=== PATIENT | male | born 1940 | race Caucasian/White ===

== ENCOUNTER 2016-09-15 14:26 | Emergency (ER) | payer MEDICARE, BC ==
[2016-09-15] MEDS ORDERED: ALBUTEROL SULFATE/IPRATROPIUM 3 ML NEBU IH ONE (14:42)
--- NOTE | 2016-09-15 14:53 | ERNOTE ---
Date of Service: 09/15/16 Time Seen by Provider: 09/15/16 14:37 Stated Complaint: SOB/HEM Presenting Symptoms:: cough Source: patient Exam Limitations: no limitations Immunizations: IMMUNIZATION HX Immunizations Up to Date Yes History of Influenza Vaccine Yes Hx Pneumococcal Vaccination Yes Allergies/Adverse Reactions: Allergies terbinafine HCl [From Lamisil] Allergy (Intermediate, Verified 08/25/14 09:10) rash, feet swell, itch Home Medications: HOME MEDICATIONS Calcium Carbonate/Vitamin D3 [Calcium 600 + Vit D 400 Tablet] 1 tab PO BID 05/10 [Last Taken 05/10/12 08:00] Diltiazem HCl [Diltiazem 24Hr ER] 240 mg PO DAILY 05/10/12 [Last Taken 08/25/14] Duloxetine HCl [Cymbalta] 60 mg PO DAILY 05/10/12 [Last Taken 05/10/12 08:00] Fexofenadine HCl [Kiarra] 180 mg PO DAILY 05/10/12 [Last Taken 05/10/12 08:00] Metformin HCl 1,000 mg PO BID 05/10/12 [Last Taken Unknown] Omeprazole [Prilosec] 40 mg PO DAILY 05/10/12 [Last Taken Unknown] Spironolactone [Aldactone] 25 mg PO DAILY 05/10/12 [Last Taken Unknown] Tamsulosin HCl 0.4 mg PO DAILY 05/10/12 [Last Taken Unknown] Atorvastatin Calcium [Lipitor] 40 mg PO DAILY 08/31/13 [Last Taken Unknown] B2/Vits A,C,E/Lut/Zeaxanth/Min [Icaps Tablet] 2 tab PO BID 08/31/13 [Last Taken Unknown] Donepezil HCl [Aricept] 5 mg PO HS 08/31/13 [Last Taken Unknown] Ferrous Sulfate 325 mg PO BID 09/07/13 [Last Taken Unknown] Blood-Glucose Meter [Prodigy] 1 each MC TID 07/20/14 [Last Taken Unknown] Pregabalin [Lyrica] 100 mg PO TID 07/20/14 [Last Taken Unknown] DULoxetine HCL [Cymbalta] 30 mg PO DAILY 08/11/14 [Last Taken Unknown] Acetaminophen [Tylenol] 1,000 mg PO Q8H PRN 09/15/16 [Last Taken Unknown] Albuterol Sulfate [Albuterol Sulfate 2.5 MG/0.5ML] 1 vial IH DAILY 09/15/16 [ Last Taken Unknown] Albuterol Sulfate [Proair Hfa] 2 puff IH Q4H PRN 09/15/16 [Last Taken Unknown] Albuterol Sulfate/Ipratropium [Duoneb 2.5-0.5MG/3ML Soln] 3 ml IH QID #150 vial 09/15/16 [Last Taken Unknown] Aspirin [Aspirin Enteric Coated] 325 mg PO DAILY 09/15/16 [Last Taken Unknown] Budesonide/Formoterol Fumarate [Symbicort 160-4.5 Mcg Inhaler] 2 puff IH BID 07/03 [Last Taken Unknown] Doxycycline Monohydrate 100 mg PO BID #20 tablet 09/15/16 [Last Taken Unknown] Fluticasone Propionate [Flonase] 2 spray NS DAILY PRN 09/15/16 [Last Taken Unknown] Furosemide [Lasix] 20 mg PO DAILY 09/15/16 [Last Taken Unknown] Insulin Glargine,Hum.rec.anlog [Lantus] 35 units SC HS 09/15/16 [Last Taken Unknown] Losartan Potassium [Cozaar] 50 mg PO DAILY 09/15/16 [Last Taken Unknown] Multivitamins [Multivitamin Nish] 1 cap PO DAILY 09/15/16 [Last Taken Unknown] Polyethylene Glycol 3350 [Miralax] 17 gm PO DAILY 09/15/16 [Last Taken Unknown] Urea [Karina Lo 39] 1 applic TP BID 09/15/16 [Last Taken Unknown] traMADol HCL [Ultram] 50 mg PO QID PRN 09/15/16 [Last Taken Unknown] - History of Present Ilness Narrative: Pt. comes in with c/o cough and SOB for four days and also with hemorrhoids that feel yoder than usual. Pt. denies any recent illness, fever, rhinorrhea, NVD, alleviating factors. Pt. does state that he has some chest tightness but denies any palpitations or edema. Pt. has a hx of COPD that he is on breathing treatments as needed for and used a couple of those without relief. It is over a year old so pt. feels that they may not have worked because it is . Review of Systems - Review of Systems Constitutional: Present: no symptoms reported. Absent: recent illness, fever, chills, weakness, fatigue, malaise EYE: Present: no symptoms reported ENT: Present: no symptoms reported. Absent: nose pain, nose congestion, nasal drainage Respiratory: Present: shortness of breath, cough, wheezing Cardiology: Present: chest pain. Absent: palpitations, syncope, edema, claudication Gastrointestinal/Abdominal: Present: no symptoms reported. Absent: nausea, vomiting, diarrhea Genitourinary: Present: no symptoms reported Musculoskeletal: Present: no symptoms reported. Absent: back pain, joint pain Skin: Present: no symptoms reported Neurological: Present: no symptoms reported. Absent: headache, dizziness/light- headedness, numbness All Other Systems: All systems neg except as marked - Patient's Past Medical History Patient History - Medical: No pertinent hx - Family History Mother Family History - Medical: , Diabetes Type 2 Family History - Cardiac/Respiratory: CVA/Stroke, Hypertension Family History - Cancer: No pertinent family hx Father Family History - Medical: , No pertinent hx Family History - Cardiac/Respiratory: Myocardial Infarction Family History - Cancer: No pertinent family hx Brother Family History - Medical: , Alcohol Abuse, Diabetes Type 2 Family History - Cardiac/Respiratory: Myocardial Infarction Family History - Cancer: No pertinent family hx Sister Family History - Medical: , No pertinent hx Family History - Cardiac/Respiratory: No pertinent hx Family History - Cancer: Colon - Social History Smoking Status: Former smoker Have you smoked in the past 12 months: No Do you dip or chew tobacco: No Patient requests Smoking Cessation Consult: No Initiate information on Smoking Cessation: No - Immunizations Immunizations Up to Date: Yes Hx Pneumococcal Vaccination: Yes History of Influenza Vaccine: Yes Physical Exam - Physical Exam General Appearance: Present: wd/wn, alert, no apparent distress Eye Exam: Normal inspection: bilateral, PERRL: bilateral, EOMI: bilateral Ears, Nose, Throat: Present: normal ENT inspection, normal pharynx Neck: Present: normal inspection, nontender. Absent: lymphadenopathy (R), lymphadenopathy (L) Respiratory: Present: accessory muscle use - abdominal an d supraclavicular, decreased breath sounds - severely except upper Bilat, wheezing Cardiovascular/Chest: Present: no murmur, normal peripheral pulses, tachycardia Gastrointestinal/Abdominal: Present: normal bowel sounds, nontender, nondistended, soft, no organomegaly Rectal Exam: Present: deferred - pt.too SOB at this time Back Exam: Present: normal inspection, normal range of motion, no CVA tenderness , no vertebral tenderness Extremity Exam: Present: normal inspection, non-tender, normal range of motion, pedal edema - +1, extremity edema - +1 Neurological Exam: Present: alert, oriented, normal mood/affect, no motor/ sensory deficits, food checkers and cashiers supervisor II-XII nml as tested, normal cerebellar test Skin Exam: Present: warm/dry, pallor. Absent: skin rash ED Progress - Date and Time Seen: Date and Time: 09/15/16 19:19 Troponin not increasing but is decreasing so will discharge on antibiotics due to history and bronchitis. - Results and Orders Patient's Lab Results:: I have reviewed the patient's lab results. Results and Orders: Elevated D Dimer with slight troponin leak - Vital Signs Patient's Vital Signs:: I have reviewed the patient's vital signs. Vital Signs: Vital Signs 09/15/16 14:28 Temperature 36.8 C Pulse Rate 91 Respiratory 20 Rate Blood Pressure 169/76 O2 Sat by Pulse 95 Oximetry - EKG EKG: NSR EKG read: Reviewed by me EKG Comments: no acute changes interpreted by Dr Eileen Abreu - X-Ray X-Ray #1 X-Ray: chest Interpretation: Interp. by me X-ray Comments: bronchial cuffing and hypoventilatory changes - CT/Ultrasound CT/Ultrasound Narrative: CT chest: Bibasilar pulmonary nodules mostly solid could be pneumonia. Bronchiectasis, and dependent atelactasis - Progress/Reassessment Chief Complaint: Upper Respiratory Symptoms Progress:: Improved Departure - Departure Clinical Impression: Bronchitis Disposition: Home self-care Condition: Good Instructions: Acute Bronchitis Additional Instructions: Please follow up with primary provider in 2-3 days. Referrals: Familia Figueroa MD [Primary Care Provider] - Prescriptions: Albuterol Sulfate/Ipratropium [Duoneb 2.5-0.5MG/3ML Soln] 3 ml IH QID #150 vial Doxycycline Monohydrate 100 mg PO BID #20 tablet
[2016-09-15] MEDS ORDERED: ALBUTEROL SULFATE 2.5 MG/0.5 ML VIAL.NEB IH ONE (15:00)
[2016-09-15 15:01] LABS: Hematocrit 38.8 % (42.0-52.0); Hemoglobin 12.3 gm/dL (13.5-18.0); Mean Cell Volume 92.6 fl (78-100); Mean Corpuscular Hemoglobin 29.4 pg (27-31); Mean Corpuscular Hgb Conc 31.7 g/dl (32-36); Mean Platelet Volume 9.5 fl (6.0-9.5); Neutrophil # 3.9 K/mm3 (1.3-6.0); Neutrophil % 52.7 % (42-75.0); Platelet Count 251 K/mm3 (150-450); Red Blood Count 4.19 M/mm3 (4.7-6.0); Red Cell Distribution Width 14.9 % (11.5-14.0); White Blood Count 7.4 K/mm3 (4.0-10.5)
[2016-09-15 15:06] VITALS: BP 149/72
[2016-09-15 15:18] LABS: Albumin * 3.7 gm/dl (3.4-5.0); Anion Gap 13.1 mmol/L (6.8-13.8); BUN/Creatinine Ratio 14.5 (9.0-21.6); Bilirubin, Total 0.4 mg/dL (0.0-1.1); Ca. Corrected For Albumin 8.8 mg/dL (8.4-10.2); Calcium * 8.9 mg/dL (7.9-10.9); Carbon Dioxide 31.2 mmol/L (24-32.6); Potassium 4.3 mmol/L (3.4-4.6); Total Protein 7.6 gm/dL (6.2-8.2)
[2016-09-15 15:19] LABS: Troponin I 0.028 ng/ml (0.00-0.10)
[2016-09-15 15:26] LABS: Urine Appearance Clear; Urine Bilirubin Negative (NEGATIVE); Urine Blood Negative /ul (NEGATIVE); Urine Color Yellow; Urine Ketone Negative (NEGATIVE)
[2016-09-15 15:27] LABS: Urine Bacteria None Seen; Urine Nitrite Negative (NEGATIVE); Urine Protein Negative (NEGATIVE); Urine RBC None Seen /hpf (0-5); Urine Urobilinogen Normal (NORMAL); Urine WBC None Seen /hpf (0-5); Urine pH 6.5 pH (5.0-7.0)
--- OUTSIDE RECORDS SUMMARY | 2016-09-15 15:40 | XMS REPORT | Continuity of Care Document ---
:1940 Author Organization [facility] ([facility]) Address [place] [address] Phone [phone] Care Team Providers Name Role Phone MonaFamilia wynn Primary Care Provider [phone] Source Comments This disclosure is being made pursuant to the Care Everywhere program, applicable federal and state laws, and may not contain all informaitonavailable regarding this patient.[facility] ([facility]) Active Allergies and Adverse Reactions Allergen Noted Date Severity Reactions Comments Terbinafine Angioedema lamisil Current Medications Prescription Sig. Disp. Refills Start Date End Date Status VIT A/VIT C/VIT take 2 Tabs by mouth 2 Active E/ZINC/COPPER times daily. (PRESERVISION AREDS PO) MULTIVITAMINS take 1 Tab by mouth Active W-MINERALS/LUT daily. (CENTRUM SILVER PO) DULoxetine (CYMBALTA) take 60 mg by mouth Active 60 mg capsule daily. metformin (GLUCOPHAGE) take 1,000 mg by mouth Active 1,000 mg tablet 2 times daily with meals. FEXOFENADINE HCL Take 180 mg by mouth Active (FEXOFENADINE PO) daily. CALCIUM PO Take 600 mg by mouth 2 Active times daily. INSULIN inject 30 Units Active GLARGINE,HUM.REC.ANLOG subcutaneously at (LANTUS SC) bedtime. DULoxetine (CYMBALTA) Take 30 mg by mouth Active 30 mg capsule daily. Take with 60 mg tab for 90 mg daily dose furosemide 40 mg Take 20 mg by mouth Active tablet daily. tamsulosin (FLOMAX) Take 0.4 mg by mouth Active 0.4 mg ER capsule daily. diltiazem 240 mg ER Take 240 mg by mouth Active capsule daily. donepezil 5 mg tablet Take 5 mg by mouth at Active bedtime. ferrous sulfate 325 mg Take 325 mg by mouth Active (65 mg iron) tablet daily. atorvastatin 40 mg Take 40 mg by mouth Active tablet every evening. omeprazole 20 mg Take 20 mg by mouth Active enteric coated capsule daily. spironolactone 25 mg Take 25 mg by mouth Active tablet daily. aspirin 325 mg EC Take 325 mg by mouth Active tablet daily. losartan 50 mg tablet Take 50 mg by mouth Active daily. pregabalin (LYRICA) Take 100 mg by mouth 3 Active 100 mg capsule times daily. primidone 50 mg tablet Take 25 mg by mouth Active daily. fluticasone-salmeterol inhale 1 puff by 10/01/2012 Active (ADVAIR 500-50) inhalation route 2 inhaler times every day in the morning and evening approximately 12 hours apart albuterol-ipratropium inhale 3 milliliter by 10/01/2012 Active 2.5-0.5 mg/3 mL nebulization route 4 inhalation solution times every day naproxen sodium 220 mg take 1 tablet (220MG) 10/01/2012 Active tablet by oral route every 12 hours as needed Active Problems Problem Noted Date Essential hypertension 09/13/2015 Orthostatic hypotension 09/13/2015 Pure hypercholesterolemia 09/13/2015 Diastolic dysfunction 09/13/2015 Overview: Echo (Normal EF, Normal Valves, Mild LVH, Impaired Relaxation Diastolic Dysfunction) - 07/25/2010 Nausea with vomiting 06/30/2014 Chest pain, unspecified 06/30/2014 Overview: Martin MPI (mild fixed perfusion defect involving the apial regions, no stress- induced reversible ischemia) - 08/15/2009 Pseudophakia 11/11/2008 Posterior capsular opacification, not obscuring vision 11/11/2008 AMD (age related macular degeneration) 11/11/2008 Overview: Geographic atrophy Type II or unspecified type diabetes mellitus without mention of 11/11/2008 complication, not stated as uncontrolled Social History Tobacco Use Types Packs/Day Years Used Date Former Smoker Cigarettes Quit: 07/13/1989 Comments:years ago Alcohol Use Drinks/Week oz/Week Comments No Last Filed Vital Signs Vital Sign Reading Time Taken Blood Pressure 142/82 09/14/2015 12:19 PM CDT Pulse 76 09/14/2015 12:19 PM CDT Temperature 36.6 C (97.9 F) 06/30/2014 3:02 PM TIE BUYER Respiratory Rate 16 06/30/2014 3:02 PM TIE BUYER Height 1.829 m (6' 0.01") 09/14/2015 12:19 PM CDT Weight 131.997 kg (291 lb) 09/14/2015 12:19 PM CDT Body Mass Index 39.46 09/14/2015 12:19 PM CDT Oxygen Saturation 95% 06/30/2014 3:02 PM TIE BUYER Plan of Care Date Type Specialty Providers Description 09/26/2016 Appointment Heart and Vascular Chilo Cardenas, Chief Comp: Patient MD Reported Reason For [address] [place] [address] [phone] (Fax) Health Maintenance Due Date Last Done Comments Hepatitis B Vaccine (1 of 3 - Primary 1940 Series) Tdap Vaccine 1952 DIABETIC: Cholesterol 12/20/1959 Diabetic: Hdl 12/20/1959 DIABETIC: Hemoglobin A1C 12/20/1959 Diabetic: Ldl 12/20/1959 DIABETIC: Microalbumin 12/20/1959 DIABETIC: Triglycerides 12/20/1959 Td Vaccine 12/20/1959 Colonoscopy 1991 Prostate Cancer Screening 12/20/1991 Zoster Vaccine 2001 Pneumococcal Vaccine (1 of 2 - PCV13) 2006 DIABETIC: Foot Exam 11/28/2010 DIABETIC: Retinal Eye Exam 09/17/2015 09/16/2014, 12/11/2012, 12/11/2012 Influenza Vaccine: Seasonal (#1) 01/16/2016 Results from Last 3 Months Not on file
[2016-09-15 15:48] LABS: Prothrombin Time (Patient) 10.5 Seconds (9.4-11.4)
[2016-09-15 15:49] LABS: INR 1.01 INR (0.90-1.10); Partial Thrombolplastin Time 25.3 Seconds (24-32)
== END 2016-09-15 19:22 | disposition home or self-care (01) ==
LOC: ER 14:26
DX: J20.9 Acute bronchitis, unspecified (principal)

== ENCOUNTER 2016-09-25 07:39 | Day surgery (SDC) | payer MEDICARE, BC ==
--- NOTE | 2016-09-20 09:41 | HP ---
Chief Complaint - Chief Complaint Date of Service: 09/20/16 Chief Complaint: need my colon checked again......also having problems with my hemorrhoids History of Present Illness: 75 year old male who has not had a colonoscopy for over 10 years (and that last one revealed no polyps) who also complains of some burning with BMs and pain with wiping. He notices no blood but his eyesight is very bad secondary to macular degeneration. He also recently had a CT to rule out a PE and was noted to have a thickening of the distal esophagus that would need to be evaluated. Hx of GERD and is on Prilosec. BMs have been soft to loose at times, Never constipated. He feels the hemorrhoids only with sitting on the stool or straining at stool, not in shower or bathing. He does push them up at times while sitting on the stool. States he has had a hemorrhoid removed in the past. No family history of colon cancer or esophageal cancer. - Patient's Past Medical History Patient History - Medical: Diabetes Type 2 Insulin Dependent, GERD, Obesity, Osteoarthritis Patient History - Cardiac/Respiratory: Asthma, Coronary Heart Disease, COPD, Hypertension, Hyperlipidemia, Sleep Apnea Patient History - Cancer: No Hx of Cancer Patient History - Surgical Procedures: Cataracts, Cholecystectomy, Colonoscopy, EGD, Total Knee Replacement, Vasectomy, Orthopedic, Urology - Family History Family History:: no untoward family reactions to anesthesia, no familial bleeding tendencies, no family history of clotting disorders - Family History Mother Family History - Medical: , Diabetes Type 2 Family History - Cardiac/Respiratory: CVA/Stroke, Hypertension Family History - Cancer: No pertinent family hx Father Family History - Medical: , No pertinent hx Family History - Cardiac/Respiratory: Myocardial Infarction Family History - Cancer: No pertinent family hx Brother Family History - Medical: , Alcohol Abuse, Diabetes Type 2 Family History - Cardiac/Respiratory: Myocardial Infarction Family History - Cancer: No pertinent family hx Sister Family History - Medical: , No pertinent hx Family History - Cardiac/Respiratory: No pertinent hx Family History - Cancer: Colon - Social History Living Situations: spouse Abuse History: No History of abuse Psych History: Hx of Anxiety, Hx of Depression, Current tx/ever been on anti- depressants or anti-anxiety meds Does anyone smoke in the home?: No Smoking Status: Former smoker - 30 years ago Alcohol Use: none Drug Use: none - Immunizations Immunizations Up to Date: Yes Hx Pneumococcal Vaccination: Yes History of Influenza Vaccine: Yes Review Of Systems (GEN) - Review of Systems Generalized/Overall Review: Present: Weight gain. Absent: Weakness, Chills, Fever, Malaise, Weight loss Respiratory: Present: Shortness of Breath. Absent: Cough, Orthopnea, Stridor, Wheezing Cardiac: Absent: Chest Pain, Palpitations, Syncope Abdominal: Absent: Nausea, Vomiting, Abdominal Pain, Constipation, Bright blood from rectum Genitourinary: Present: Frequency, Nocturia, Other Musculoskeletal: Present: Joint Pain, Joint Swelling Neurological: Absent: Headache, Anxiety, Depressed, Numbness Skin: Absent: Dryness, Lesions, Lumps Immunizations: IMMUNIZATION HX Immunizations Up to Date Yes History of Influenza Vaccine Yes Hx Pneumococcal Vaccination Yes Allergies/Adverse Reactions: Allergies Allergy/AdvReac Type Severity Reaction Status Date / Time terbinafine HCl Allergy Intermediate rash, feet Verified 08/25/14 09:10 [From Lamisil] swell, itch Home Medications: HOME MEDICATIONS Calcium Carbonate/Vitamin D3 [Calcium 600 + Vit D 400 Tablet] 1 tab PO BID 05/10 [Last Taken 05/10/12 08:00] Diltiazem HCl [Diltiazem 24Hr ER] 240 mg PO DAILY 05/10/12 [Last Taken 08/25/14] Duloxetine HCl [Cymbalta] 60 mg PO DAILY 05/10/12 [Last Taken 05/10/12 08:00] Fexofenadine HCl [Kiarra] 180 mg PO DAILY 05/10/12 [Last Taken 05/10/12 08:00] Metformin HCl 1,000 mg PO BID 05/10/12 [Last Taken Unknown] Omeprazole [Prilosec] 40 mg PO DAILY 05/10/12 [Last Taken Unknown] Spironolactone [Aldactone] 25 mg PO DAILY 05/10/12 [Last Taken Unknown] Tamsulosin HCl 0.4 mg PO DAILY 05/10/12 [Last Taken Unknown] Atorvastatin Calcium [Lipitor] 40 mg PO DAILY 08/31/13 [Last Taken Unknown] B2/Vits A,C,E/Lut/Zeaxanth/Min [Icaps Tablet] 2 tab PO BID 08/31/13 [Last Taken Unknown] Donepezil HCl [Aricept] 5 mg PO HS 08/31/13 [Last Taken Unknown] Ferrous Sulfate 325 mg PO BID 09/07/13 [Last Taken Unknown] Blood-Glucose Meter [Prodigy] 1 each MC TID 07/20/14 [Last Taken Unknown] Pregabalin [Lyrica] 100 mg PO TID 07/20/14 [Last Taken Unknown] DULoxetine HCL [Cymbalta] 30 mg PO DAILY 08/11/14 [Last Taken Unknown] Acetaminophen [Tylenol] 1,000 mg PO Q8H PRN 09/15/16 [Last Taken Unknown] Albuterol Sulfate [Albuterol Sulfate 2.5 MG/0.5ML] 1 vial IH DAILY 09/15/16 [ Last Taken Unknown] Albuterol Sulfate [Proair Hfa] 2 puff IH Q4H PRN 09/15/16 [Last Taken Unknown] Albuterol Sulfate/Ipratropium [Duoneb 2.5-0.5MG/3ML Soln] 3 ml IH QID #150 vial 09/15/16 [Last Taken Unknown] Aspirin [Aspirin Enteric Coated] 325 mg PO DAILY 09/15/16 [Last Taken Unknown] Budesonide/Formoterol Fumarate [Symbicort 160-4.5 Mcg Inhaler] 2 puff IH BID 07/03 [Last Taken Unknown] Doxycycline Monohydrate 100 mg PO BID #20 tablet 09/15/16 [Last Taken Unknown] Fluticasone Propionate [Flonase] 2 spray NS DAILY PRN 09/15/16 [Last Taken Unknown] Furosemide [Lasix] 20 mg PO DAILY 09/15/16 [Last Taken Unknown] Insulin Glargine,Hum.rec.anlog [Lantus] 35 units SC HS 09/15/16 [Last Taken Unknown] Losartan Potassium [Cozaar] 50 mg PO DAILY 09/15/16 [Last Taken Unknown] Multivitamins [Multivitamin Nish] 1 cap PO DAILY 09/15/16 [Last Taken Unknown] Polyethylene Glycol 3350 [Miralax] 17 gm PO DAILY 09/15/16 [Last Taken Unknown] Urea [Karina Lo 39] 1 applic TP BID 09/15/16 [Last Taken Unknown] predniSONE [Prednisone] 3 tab PO DAILY #9 tab 09/15/16 [Last Taken Unknown] traMADol HCL [Ultram] 50 mg PO QID PRN 09/15/16 [Last Taken Unknown] Exam - Exam Vital Signs: Vital Signs - Last Taken Temp 36.8 C 09/15/16 19:22 Pulse Resp BP 149/72 09/15/16 19:22 Pulse Ox Ht 5'11 Wt 300# Constitutional: Present: Alert, Oriented x3, Cooperative, Morbidly obese ENT Exam: Present: normal ENT inspection, hearing grossly normal Neck: Present: non-tender, full range of motion Breasts: Present: Exam deferred Respiratory: Present: lungs clear, normal breath sounds, no respiratory distress , no accessory muscle use Cardiovascular/Chest: Present: regular rate, rhythm, no murmur Abdomen: Present: Normal bowel sounds, soft, nontender, obese /Rectal: Present: External genitalia normal, Sphincter tone normal. Absent: hemorrhoids, rectal mass Skin Exam: Present: normal color, warm/dry, no cyanosis Neurologic: Present: oriented x 3. Absent: abnormal gait, facial droop Appearance: Present: appropriate appearance, appropriate insight, neat Eye contact: Present: cooperative, normal speech Thoughts: Present: normal thought pattern, no apparent hallucination Assessment/Plan - Narrative Narrative: We discussed proceeding with an EGD and Colonoscopy. The EGD for abnormal CT to evaluate the distal esophagus. The colon for screening. If the internal hemorrhoids are bandable, we can do that at the same setting. He understands and agrees. The prep was discussed. - Assessment/Plan (1) Abnormal CT scan, esophagus Problem: Acute (2) Colon cancer screening Problem: Acute (3) Hemorrhoids that prolapse with straining and require manual replacement back inside anal canal Problem: Chronic (4) Diabetes 1.5, managed as type 1 Problem: Chronic (5) Macular degeneration Problem: Chronic (6) GERD (gastroesophageal reflux disease) Problem: Chronic Qualifiers: Esophagitis presence: esophagitis presence not specified Qualified Code(s) : K21.9 - Gastro-esophageal reflux disease without esophagitis (7) Sleep apnea Problem: Chronic (8) Bronchitis Problem: Resolved
[~2016-09-25 07:39] MED LIST: RINGERS SOLUTION,LACTATED 1,000 ML IV PRN
--- OUTSIDE RECORDS SUMMARY | 2016-09-25 07:42 | XMS REPORT | Continuity of Care Document ---
:1940 Author Organization [facility] ([facility]) [place] [address] Phone [phone] Care Team Providers Name Role Phone MonaFamilia wynn Primary Care Provider [phone] Source Comments This disclosure is being made pursuant to the Care Everywhere program, applicable federal and state laws, and may not contain all informaitonavailable regarding this patient.[facility] ([facility]) Active Allergies and Adverse Reactions Allergen Noted [...] 36.6 C (97.9 F) 06/30/2014 3:02 PM GRAVEL WEIGHER Respiratory Rate 16 06/30/2014 3:02 PM GRAVEL WEIGHER Height 1.829 m (6' 0.01") 09/14/2015 12:19 PM CDT Weight 131.997 kg (291 lb) 09/14/2015 12:19 PM CDT Body Mass Index 39.46 09/14/2015 12:19 PM CDT Oxygen Saturation 95% 06/30/2014 3:02 PM GRAVEL WEIGHER Plan of Care Date Type Specialty Providers Description 09/26/2016 Appointment Heart and Vascular Chilo Cardenas, Chief Comp: Patient MD Reported Reason For [address] [place] [address] [phone] (Fax) Health Maintenance Due Date Last Done [...] 09/17/2015 09/16/2014, 12/11/2012, 12/11/2012 Influenza Vaccine: Seasonal Completed Results from Last 3 Months Not on file
[2016-09-25] MEDS ORDERED: RINGERS SOLUTION,LACTATED 1,000 ML IV ONE (08:44)
[2016-09-25] MEDS ORDERED: RINGERS SOLUTION,LACTATED 1,000 ML IV PRN (09:50)
--- NOTE | 2016-09-25 09:59 | OR ---
Operative Report - Dictated Report Narrative: DATE: 09/25/2016 PREOPERATIVE DIAGNOSIS: Persistent GERD, abnormal CT scan of the esophagus, history of hiatal hernia, screening colonoscopy, blood and pain with wiping POSTOPERATIVE DIAGNOSIS: #1 Moderate size hiatal hernia, #2 antritis (possible bile reflux), #3 H. pylori pending, #4 extensive diverticulosis, #5 transverse colon polyp, pending final pathology PROCEDURE: #1 ESOPHAGOGASTRODUODENOSCOPY with biopsy #2 COLONOSCOPY with snare polypectomy SURGEON: Wood Cohen M.D. [facility] ANESTHESIA: Nan Sow CRNA SEDATION INDICATIONS. This is a 75-year-old male who presents with a persistent GERD despite medical therapy, abnormal CT scan of the chest revealed thickening of the distal esophagus, etiology unknown, screening colonoscopy, and rectal pain with wiping and occasional blood on paper, no obvious external hemorrhoids or fissure. Risk, benefits, indications and contra indications were discussed with the patient for an EGD with possible biopsy and colonoscopy with possible biopsy and/or polypectomy, and possible banding of internal hemorrhoids. The patient understood and agreed and wished to proceed. The patient tolerated the SUPREP well. Procedure: The patient was brought into the operating room theater and placed into the left lateral decubitus position. A bite block was placed and he was given sedation per JEREMIE. After adequate sedation was obtained, the Prylos video gastroscope was introduced and advanced into the pharynx. This appeared to be normal. The vocal cords were seen to be normal. Scope was advanced into the esophagus under direct visualization. The scope was advanced through the esophagus, which was otherwise unremarkable excepting some very early varices. The GE junction was noted at approximately 40 cm. The scope was advanced through the GE junction into the stomach. The stomach had a relatively normal appearance with moderate antritis. There was no obvious signs of recent or old bleeding, but signs of superficial, heaped up ulceration , with bile was noted throughout the stomach and there was no obvious other abnormalities noted within the stomach body. The scope was retroflexed and the upper stomach appeared to be normal, other than the bile. GE junction appeared to be normal and moderate sized hiatal hernia was noted. The endoscope was then advanced through the pyloric channel into an otherwise normal second and third portions of the duodenum. Multiple pictures were taken. The scope was then withdrawn slowly. Biopsy of the antrum was taken for pathology and H. pylori. Once again the scope was retroflexed and pictures taken. The Scope was then removed slowly through the stomach and, ultimately at the GE junction, the stomach was decompressed. The GE junction was examined closely. Pictures were taken. No esophagitis was noted, no abnormalities of the distal esophagus were noted to correlate with the CT with thickening. The scope was then removed through the esophagus. Once the scope was removed completely, the patient remained in the left lateral decubitus position for the colonoscopy. A digital rectal exam was performed. This was noted to be unremarkable. The patient was noted to have no internal or external hemorrhoids. The Olympus video colonoscope was introduced and advanced into the rectum. The rectum was normal in appearance. The scope was then advanced through the sigmoid, where extensive diverticular disease was noted. The scope was then advanced into the transverse colon when a small, slightly pedunculated, less than 1 cm polyp was encountered. It was removed with the cold snare. The polyp was retrieved via the polyp trap. There was good hemostasis. The scope was then advanced to the cecum using standard reduction techniques. The prep appeared to be good with a Dundalk prep score of 7. The scope was withdrawn slowly as the ascending, transverse, descending, and sigmoid colon were examined in a circumferential fashion. The scope was brought back into the rectum where it was retroflexed and the lower rectum was examined. No internal hemorrhoids were noted. The air was decompressed, and the scope was then removed. Withdrawal time was 11 minutes. POSTOPERATIVE CONDITION: The patient was awakened and taken to the ambulatory surgery center in good condition. No complications were encountered. FINDINGS: As noted in postop diagnosis SPECIMEN: two to pathology and biopsy for H. pylori EBL: 0 mls The findings were discussed with the patient. I recommend a follow-up colonoscopy in 5 years for screening purposes, depending on patient's health at that time. Diverticulosis booklet was reviewed, call next week with biopsy results.
[2016-09-25 10:58] VITALS: BP 157/75
== END 2016-09-25 07:40 | disposition home or self-care (01) ==
LOC: AMB 07:39
PROVIDERS: ATTEND Surgery
PROC: 0DB68ZX Excision of Stomach, Via Natural or Artificial Opening Endoscopic, Diagnostic (ICD-10-PCS; principal; 2016-09-25 09:20)
PROC: 0DBL8ZX Excision of Transverse Colon, Via Natural or Artificial Opening Endoscopic, Diagnostic (ICD-10-PCS; 2016-09-25 09:20)
DX: Z12.11 Encounter for screening for malignant neoplasm of colon (principal); K29.50 Unspecified chronic gastritis without bleeding; K44.9 Diaphragmatic hernia without obstruction or gangrene; K21.9 Gastro-esophageal reflux disease without esophagitis; D12.3 Benign neoplasm of transverse colon; K57.30 Diverticulosis of large intestine without perforation or abscess without bleeding; E11.9 Type 2 diabetes mellitus without complications; I10 Essential (primary) hypertension; I25.10 Atherosclerotic heart disease of native coronary artery without angina pectoris; J45.909 Unspecified asthma, uncomplicated; J44.9 Chronic obstructive pulmonary disease, unspecified; E78.5 Hyperlipidemia, unspecified; E66.9 Obesity, unspecified; Z68.41 Body mass index [BMI] 40.0-44.9, adult; Z87.891 Personal history of nicotine dependence

== ENCOUNTER 2016-10-22 11:29 | Inpatient (IN) | payer MEDICARE, BC ==
[2016-10-22] MEDS ORDERED: ALBUTEROL SULFATE 2.5 MG/0.5 ML VIAL.NEB IH ONE ×2 (11:42→11:45)
[2016-10-22] MEDS ORDERED: METHYLPREDNISOLONE SOD SUCC/PF 40 MG/ML VIAL IV ONE (11:50)
--- OUTSIDE RECORDS SUMMARY | 2016-10-22 12:02 | XMS REPORT | Continuity of Care Document ---
:1940 Author Organization [facility] ([facility]) Address [address] [place] [address] Phone [phone] Care Team Providers Name Role Phone Familia Figueroa Primary Care Provider [phone] Source Comments This disclosure is being made pursuant to the Care Everywhere program, applicable federal and state laws, and may not contain all informaitonavailable regarding this patient.[facility] ([facility]) Active Allergies and Adverse Reactions Allergen Noted Date Severity Reactions Comments Terbinafine Angioedema lamisil Current Medications Prescription Sig. Disp. Refills Start Date End Date Status VIT A/VIT C/VIT take 2 Tabs by Active E/ZINC/COPPER mouth 2 times (PRESERVISION AREDS daily. PO) DULoxetine take 60 mg by mouth Active (CYMBALTA) 60 mg daily. capsule metformin take 1,000 mg by Active (GLUCOPHAGE) 1,000 mouth 2 times daily mg tablet with meals. FEXOFENADINE HCL Take 180 mg by Active (FEXOFENADINE PO) mouth daily. CALCIUM PO Take 600 mg by Active mouth 2 times daily. INSULIN inject 30 Units Active GLARGINE,HUM.REC.ANL subcutaneously at OG (LANTUS SC) bedtime. DULoxetine Take 30 mg by mouth Active (CYMBALTA) 30 mg daily. Take with 60 capsule mg tab for 90 mg daily dose tamsulosin (FLOMAX) Take 0.4 mg by Active 0.4 mg ER capsule mouth daily. donepezil 5 mg Take 5 mg by mouth Active tablet at bedtime. ferrous sulfate 325 Take 325 mg by Active mg (65 mg iron) mouth daily. tablet atorvastatin 40 mg Take 40 mg by mouth Active tablet every evening. omeprazole 20 mg Take 20 mg by mouth Active enteric coated daily. capsule spironolactone 25 mg Take 25 mg by mouth Active tablet daily. aspirin 325 mg EC Take 325 mg by Active tablet mouth daily. losartan 50 mg Take 50 mg by mouth Active tablet daily. pregabalin (LYRICA) Take 100 mg by Active 100 mg capsule mouth 3 times daily. primidone 50 mg Take 25 mg by mouth Active tablet daily. predniSONE 20 mg 09/16/2016 Active tablet LANTUS 100 unit/mL 09/03/2016 Active injection vial furosemide 20 mg 09/13/2016 Active tablet traMADol 50 mg Take 50 mg by mouth Active tablet 4 times daily as needed. ANTIOX#10/OM3/DHA/EP Active A/LUT/ZEAX (I-CAPS PO) MULTIVITAMINS take 1 Tab by mouth Discontinued W-MINERALS/LUT daily. 7 (CENTRUM SILVER PO) furosemide 40 mg Take 20 mg by mouth Discontinued tablet daily. 7 diltiazem 240 mg ER Take 240 mg by Discontinued capsule mouth daily. 7 fluticasone-salmeter inhale 1 puff by 10/01/2012 Discontinued ol (ADVAIR 500-50) inhalation route 2 7 inhaler times every day in the morning and evening approximately 12 hours apart albuterol-ipratropiu inhale 3 milliliter 10/01/2012 Discontinued m 2.5-0.5 mg/3 mL by nebulization 7 inhalation solution route 4 times every day naproxen sodium 220 take 1 tablet 10/01/2012 Discontinued mg tablet (220MG) by oral 7 route every 12 hours as needed diltiaZEM 240 mg ER 09/13/2016 Discontinued capsule 7 azithromycin 250 mg TAKE 2 TABLETS BY 0 08/16/2016 Discontinued tablet MOUTH TODAY, THEN 1 7 TABLET DAILY UNTIL GONE. Active Problems Problem Noted Date Essential hypertension [...] of 11/11/2008 complication, not stated as uncontrolled Most Recent Encounters Date Type Specialty Providers Description 09/26/2016 Office Visit [facility], Dx: Essential MD hypertension (Primary Dx) Social History Tobacco Use Types Packs/Day Years Used Date Former Smoker Cigarettes Quit: 07/13/1989 Comments:years ago Alcohol Use Drinks/Week oz/Week Comments No Last Filed Vital Signs Vital Sign Reading Time Taken Blood Pressure 130/54 09/26/2016 9:49 AM CDT Pulse 80 09/26/2016 9:49 AM CDT Temperature 36.6 C (97.9 F) 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 Respiratory Rate 16 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 Height 1.803 m (5' 11") 09/26/2016 9:49 AM CDT Weight 133.811 kg (295 lb) 09/26/2016 9:49 AM CDT Body Mass Index 41.16 09/26/2016 9:49 AM CDT Oxygen Saturation 95% 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
[2016-10-22 12:04] LABS: Hematocrit 36.9 % (42.0-52.0); Hemoglobin 11.7 gm/dL (13.5-18.0); Mean Cell Volume 90.9 fl (78-100); Mean Corpuscular Hemoglobin 28.8 pg (27-31); Mean Corpuscular Hgb Conc 31.7 g/dl (32-36); Mean Platelet Volume 9.5 fl (6.0-9.5); Neutrophil # 3.3 K/mm3 (1.3-6.0); Neutrophil % 47.7 % (42-75.0); Platelet Count 217 K/mm3 (150-450); Red Blood Count 4.06 M/mm3 (4.7-6.0); Red Cell Distribution Width 14.6 % (11.5-14.0); White Blood Count 6.9 K/mm3 (4.0-10.5)
[2016-10-22] MEDS ORDERED: METHYLPREDNISOLONE ACETATE 80 MG/ML VIAL ONE (12:04)
[2016-10-22] MEDS ORDERED: METHYLPREDNISOLONE SOD SUCC/PF 40 MG/ML VIAL ONE (12:05)
[2016-10-22 12:24] LABS: ALT 33 U/L (19-67); AST 21 U/L (0-48); Albumin * 3.2 gm/dl (3.4-5.0); Alkaline Phosphatase * 138 U/L (50-170); Anion Gap 12.8 mmol/L (6.8-13.8); BNP * 61 pg/mL (5-350); BUN/Creatinine Ratio 17.7 (9.0-21.6); Bilirubin, Total 0.4 mg/dL (0.0-1.1); Blood Urea Nitrogen 20 mg/dL (6-23); Ca. Corrected For Albumin 9.2 mg/dL (8.4-10.2); Calcium * 8.9 mg/dL (7.9-10.9); Carbon Dioxide 28.3 mmol/L (24-32.6); Chloride 105 mmol/L (97-106); Glucose * 135 mg/dL (70-110); Potassium 4.1 mmol/L (3.4-4.6); Sodium 142 mmol/L (132-142); Total Protein 7.1 gm/dL (6.2-8.2); Troponin I Less than 0.017 ng/ml (0.00-0.10)
[2016-10-22] MEDS ORDERED: ALBUTEROL SULFATE/IPRATROPIUM 3 ML NEBU IH ONE ×3 (13:15→13:32)
--- OUTSIDE RECORDS SUMMARY | 2016-10-22 14:18 | XMS REPORT | Continuity of Care Document ---
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
--- NOTE | 2016-10-22 14:22 | ERNOTE ---
Dyspnea - Date Date of Service: 10/22/16 - General Presenting Symptoms: shortness of breath Time Seen by Provider: 10/22/16 11:48 Source: patient Exam Limitations: no limitations - Immun/Allergies/Home Medications Immunizations: IMMUNIZATION HX Immunizations Up to Date Yes History of Influenza Vaccine Yes Hx Pneumococcal Vaccination Yes Allergies/Adverse Reactions: Allergies terbinafine HCl [From Lamisil] Allergy (Intermediate, Verified 10/22/16 12:27) rash, feet swell, itch Home Medications: HOME MEDICATIONS Calcium Carbonate/Vitamin D3 [Calcium 600 + Vit D 400 Tablet] 1 tab PO BID 05/10 [Last Taken 05/10/12 08:00] Diltiazem HCl [Diltiazem 24Hr ER] 240 mg PO DAILY 05/10/12 [Last Taken 08/25/14] Duloxetine HCl [Cymbalta] 60 mg PO DAILY 05/10/12 [Last Taken 05/10/12 08:00] Fexofenadine HCl [Kiarra] 180 mg PO DAILY 05/10/12 [Last Taken 05/10/12 08:00] Metformin HCl 1,000 mg PO BID 05/10/12 [Last Taken Unknown] Omeprazole [Prilosec] 40 mg PO DAILY 05/10/12 [Last Taken Unknown] Spironolactone [Aldactone] 25 mg PO DAILY 05/10/12 [Last Taken Unknown] Tamsulosin HCl 0.4 mg PO DAILY 05/10/12 [Last Taken Unknown] Atorvastatin Calcium [Lipitor] 40 mg PO DAILY 08/31/13 [Last Taken Unknown] B2/Vits A,C,E/Lut/Zeaxanth/Min [Icaps Tablet] 2 tab PO BID 08/31/13 [Last Taken Unknown] Donepezil HCl [Aricept] 5 mg PO HS 08/31/13 [Last Taken Unknown] Ferrous Sulfate 325 mg PO BID 09/07/13 [Last Taken Unknown] Blood-Glucose Meter [Prodigy] 1 each MC TID 07/20/14 [Last Taken Unknown] Pregabalin [Lyrica] 100 mg PO TID 07/20/14 [Last Taken Unknown] DULoxetine HCL [Cymbalta] 30 mg PO DAILY 08/11/14 [Last Taken Unknown] Acetaminophen [Tylenol] 1,000 mg PO Q8H PRN 09/15/16 [Last Taken Unknown] Albuterol Sulfate [Albuterol Sulfate 2.5 MG/0.5ML] 1 vial IH DAILY 09/15/16 [ Last Taken Unknown] Albuterol Sulfate [Proair Hfa] 2 puff IH Q4H PRN 09/15/16 [Last Taken Unknown] Albuterol Sulfate/Ipratropium [Duoneb 2.5-0.5MG/3ML Soln] 3 ml IH QID #150 vial 09/15/16 [Last Taken Unknown] Aspirin [Aspirin Enteric Coated] 325 mg PO DAILY 09/15/16 [Last Taken Unknown] Budesonide/Formoterol Fumarate [Symbicort 160-4.5 Mcg Inhaler] 2 puff IH BID 07/03 [Last Taken Unknown] Doxycycline Monohydrate 100 mg PO BID #20 tablet 09/15/16 [Last Taken Unknown] Fluticasone Propionate [Flonase] 2 spray NS DAILY PRN 09/15/16 [Last Taken Unknown] Furosemide [Lasix] 20 mg PO DAILY 09/15/16 [Last Taken Unknown] Insulin Glargine,Hum.rec.anlog [Lantus] 35 units SC HS 09/15/16 [Last Taken Unknown] Losartan Potassium [Cozaar] 50 mg PO DAILY 09/15/16 [Last Taken Unknown] Multivitamins [Multivitamin Nish] 1 cap PO DAILY 09/15/16 [Last Taken Unknown] Polyethylene Glycol 3350 [Miralax] 17 gm PO DAILY 09/15/16 [Last Taken Unknown] Urea [Clinton Lo 39] 1 applic TP BID 09/15/16 [Last Taken Unknown] traMADol HCL [Ultram] 50 mg PO QID PRN 09/15/16 [Last Taken Unknown] predniSONE [Prednisone] 2 tab PO DAILY 10/22/16 [Last Taken Unknown] - History of Present Illness Narrative: Patient presents to the ED for SOB and wheezing. he has been having increasing wheezing for the last 4 days. He relaets the wheezing and SOB is keeping him up at night. he relates the SOB is not bad at rest but if he tries to walk it is intense. No chest pain but some chest tightness. Cough with some colored sputum production. No hemoptysis. No calf pain. He does not feel his legs are more swollen than usual. No acute abdominal pain. has not seen anyone else for this. Severity: moderate Initiating event: Reports: other - has been sick also with URI Frequency of episodes: Reports: occassional episodes Modifying Factors - (Improves): Reports: rest Modifying Factors (Worsens): Reports: activity Associated Symptoms-Dyspnea: Reports: cough, wheezing. Denies: fever/chills, chest pain/discomfort, weakness Prior Treatment: Denies: recently seen Review of Systems - Review of Systems Constitutional: Absent: fever Respiratory: Present: shortness of breath, cough Cardiology: Absent: chest pain Gastrointestinal/Abdominal: Absent: abdominal pain Genitourinary: Absent: dysuria All Other Systems: All systems neg except as marked - Patient's Past Medical History Patient History - Medical: Diabetes Type 2, GERD, Osteoarthritis Patient History - Cardiac/Respiratory: Asthma, Coronary Heart Disease, COPD, Hypertension, Sleep Apnea Patient History - Cancer: No Hx of Cancer Patient History - Surgical Procedures: Cataracts, Cholecystectomy, Colonoscopy, EGD, Total Knee Replacement, Vasectomy Patient History - Other: None - Family History Mother Family History - Medical: , Diabetes Type 2 Family History - Cardiac/Respiratory: CVA/Stroke, Hypertension Family History - Cancer: No pertinent family hx Father Family History - Medical: , No pertinent hx Family History - Cardiac/Respiratory: Myocardial Infarction Family History - Cancer: No pertinent family hx Brother Family History - Medical: , Alcohol Abuse, Diabetes Type 2 Family History - Cardiac/Respiratory: Myocardial Infarction Family History - Cancer: No pertinent family hx Sister Family History - Medical: , No pertinent hx Family History - Cardiac/Respiratory: No pertinent hx Family History - Cancer: Colon - Social History Living Situations: home Abuse History: No History of abuse Psych History: No pertinent hx Does anyone smoke in the home?: No Smoking Status: Former smoker Alcohol Use: rarely Drug Use: none - Immunizations Immunizations Up to Date: Yes Hx Pneumococcal Vaccination: Yes History of Influenza Vaccine: Yes Physical Exam - Physical Exam General Appearance: Present: alert, other - mild tachypnea at rest. Cough noted. Eye Exam: Normal inspection: bilateral, PERRL: bilateral Ears, Nose, Throat: Present: normal ENT inspection Neck: Present: normal inspection Respiratory: Present: expiration (prolonged), wheezing, other - wheezes throughout. Mild tachypnea. Cardiovascular/Chest: Present: regular rate, rhythm Gastrointestinal/Abdominal: Present: normal bowel sounds, nontender, soft Back Exam: Present: normal range of motion Extremity Exam: Present: other - no calf tenderness Neurological Exam: Present: alert, normal mood/affect, no motor/sensory deficits Skin Exam: Absent: skin rash ED Progress - Results and Orders Patient's Lab Results:: I have reviewed the patient's lab results. - Vital Signs Patient's Vital Signs:: I have reviewed the patient's vital signs. Vital Signs: Vital Signs 10/22/16 10/22/16 10/22/16 11:36 11:47 11:57 Temperature 36.9 C Pulse Rate 73 77 72 Respiratory 17 16 21 H Rate Blood Pressure 162/66 O2 Sat by Pulse 90 90 Oximetry 10/22/16 10/22/16 10/22/16 12:20 12:44 12:45 Temperature 36.8 C Pulse Rate 69 68 Respiratory 16 14 Rate Blood Pressure 160/69 164/78 O2 Sat by Pulse 91 94 Oximetry 10/22/16 10/22/16 10/22/16 13:25 13:35 13:45 Temperature 36.6 C Pulse Rate 71 69 68 Respiratory 15 15 25 H Rate Blood Pressure 166/78 O2 Sat by Pulse 91 92 Oximetry 10/22/16 10/22/16 13:53 14:01 Temperature Pulse Rate 70 Respiratory Rate Blood Pressure 164/75 O2 Sat by Pulse 96 87 L Oximetry - EKG EKG: NSR EKG read: Interp. by me EKG Comments: NSR rate 73. Non-specific changes, no STEMI. - X-Ray X-Ray #1 X-Ray: chest Interpretation: Interp. by me, Reviewed by me X-ray Comments: No acute pneumonia. Official radiology report reviewed. - Progress/Reassessment Chief Complaint: Dyspnea Progress Note-Subjective: 10/22/16 14:20 Patient desats to 87 % with ambulation and becomes very SOB. This improves with rest in bed. Still with significant wheezing after 2 nebs. He feels too SOB to go home. Will admit for obs and steroids/treatment. D/W Hospitalist. Departure Clinical Impression: COPD exacerbation - Departure Disposition: [facility] Condition: Fair Referrals: Familia Figueroa MD [Primary Care Provider] -
[2016-10-22] MEDS: ALBUTEROL SULFATE/IPRATROPIUM 3 ML NEBU IH SCH ×2 (15:38→19:23)
[2016-10-22] MEDS ORDERED: FUROSEMIDE 40 MG TABLET PO ONE (16:05)
[2016-10-22] MEDS: ENOXAPARIN SODIUM 40 MG/0.4 ML SYRG SC SCH (16:31)
[2016-10-22] MEDS: PANTOPRAZOLE SODIUM 40 MG TABLET.EC PO SCH (16:32)
[2016-10-22] MEDS: INSULIN LISPRO 100 UNITS/ML VIAL SC SCH (17:38)
[2016-10-22 17:44] LABS: Urine Bilirubin Negative (NEGATIVE); Urine Blood Negative /ul (NEGATIVE); Urine Ketone Negative (NEGATIVE); Urine Nitrite Negative (NEGATIVE); Urine Protein 15 mg/dL (NEGATIVE); Urine Urobilinogen Normal (NORMAL)
[2016-10-22 18:05] LABS: Urine Appearance Clear; Urine Bacteria 2+; Urine Color Yellow; Urine RBC None Seen /hpf (0-5); Urine WBC None Seen /hpf (0-5)
[2016-10-22] MEDS: AZITHROMYCIN 500 MG in DEXTROSE 5 % IN WATER 250 ML IV SCH ×2 (18:07)
--- NOTE | 2016-10-22 18:18 | HP ---
Chief Complaint - Chief Complaint Date of Service: 10/22/16 Time of Service: 15:45 Chief Complaint: shortness of breath History of Present Illness: Michael is a 75 year old male patient of Dr. Figueroa with a PMH of multi- factorial dyspnea, HTN, orthostatic hypotension, diastolic dysfunction, diabetes , COPD, HLD, YARITZA on CPAP who presented to the ER with c/o dyspnea and wheezing for 4 days. History of URI symptoms for 2 weeks. c/o increasing lower extremity edema. Last stress test 2009 showed mild fixed perfusion defect involving the apical region but no stress induced ischemia. Last echo 07/25/2010 normal ef, mild LVH and diastolic dysfunction. ER workup revealed non acute ekg. normal wbc. neg trop. patient was given 2 nebulizer treatments with 80 mg iv depomedrol and 40 mg iv solumedrol. walking decreased patient's oxygen saturation to 87% on RA - patient does not use oxygen at home. Patient to be admitted for COPD exaceration and respiratory failure with hypoxia. - Patient's Past Medical History Patient History - Medical: Diabetes Type 2, GERD, Osteoarthritis Patient History - Cardiac/Respiratory: Bronchitis, COPD, Hypertension, Sleep Apnea Patient History - Cancer: No Hx of Cancer Patient History - Surgical Procedures: Cataracts, Cholecystectomy, Colonoscopy, EGD, Total Knee Replacement, Vasectomy Patient History - Other: None - Family History Mother Family History - Medical: , Diabetes Type 2 Family History - Cardiac/Respiratory: CVA/Stroke, Hypertension Family History - Cancer: No pertinent family hx Father Family History - Medical: , No pertinent hx Family History - Cardiac/Respiratory: Myocardial Infarction Family History - Cancer: No pertinent family hx Brother Family History - Medical: , Alcohol Abuse, Diabetes Type 2 Family History - Cardiac/Respiratory: Myocardial Infarction Family History - Cancer: No pertinent family hx Sister Family History - Medical: , No pertinent hx Family History - Cardiac/Respiratory: No pertinent hx Family History - Cancer: Colon - Social History Living Situations: significant other Abuse History: No History of abuse Psych History: No pertinent hx Does anyone smoke in the home?: No Smoking Status: Former smoker Have you smoked in the past 12 months: No Do you dip or chew tobacco: No Alcohol Use: rarely Drug Use: none - Immunizations Immunizations Up to Date: Yes Hx Pneumococcal Vaccination: Yes History of Influenza Vaccine: Yes Review Of Systems (GEN) - Review of Systems Generalized/Overall Review: Present: Weakness, Fatigue EENTM: Present: Nose Congestion - recent Respiratory: Present: Cough, Shortness of Breath, Wheezing Cardiac: Present: Edema. Absent: Chest Pain, Palpitations, Syncope Abdominal: Present: No Symptoms Reported Genitourinary: Present: No Symptoms Reported Musculoskeletal: Present: No Symptoms Reported Neurological: Present: No Symptoms Reported Skin: Present: No Symptoms Reported Endocrine: Present: No Symptoms Reported Misc: All systems neg except as marked Immunizations: IMMUNIZATION HX Immunizations Up to Date Yes History of Influenza Vaccine Yes Hx Pneumococcal Vaccination Yes Allergies/Adverse Reactions: Allergies Allergy/AdvReac Type Severity Reaction Status Date / Time terbinafine HCl Allergy Intermediate rash, feet Verified 10/22/16 15:12 [From Lamisil] swell, itch Home Medications: HOME MEDICATIONS Calcium Carbonate/Vitamin D3 [Calcium 600 + Vit D 400 Tablet] 1 tab PO BID 05/10 [Last Taken 05/10/12 08:00] Diltiazem HCl [Diltiazem 24Hr ER] 240 mg PO DAILY 05/10/12 [Last Taken 08/25/14] Duloxetine HCl [Cymbalta] 60 mg PO DAILY 05/10/12 [Last Taken 05/10/12 08:00] Fexofenadine HCl [Kiarra] 180 mg PO DAILY 05/10/12 [Last Taken 05/10/12 08:00] Metformin HCl 1,000 mg PO BID 05/10/12 [Last Taken Unknown] Omeprazole [Prilosec] 40 mg PO DAILY 05/10/12 [Last Taken Unknown] Spironolactone [Aldactone] 25 mg PO DAILY 05/10/12 [Last Taken Unknown] Tamsulosin HCl 0.4 mg PO DAILY 05/10/12 [Last Taken Unknown] Atorvastatin Calcium [Lipitor] 40 mg PO DAILY 08/31/13 [Last Taken Unknown] B2/Vits A,C,E/Lut/Zeaxanth/Min [Icaps Tablet] 2 tab PO BID 08/31/13 [Last Taken Unknown] Donepezil HCl [Aricept] 5 mg PO HS 08/31/13 [Last Taken Unknown] Ferrous Sulfate 325 mg PO BID 09/07/13 [Last Taken Unknown] Blood-Glucose Meter [Prodigy] 1 each MC TID 02/03/15 [Last Taken Unknown] Pregabalin [Lyrica] 100 mg PO TID 07/20/14 [Last Taken Unknown] DULoxetine HCL [Cymbalta] 30 mg PO DAILY 08/11/14 [Last Taken Unknown] Acetaminophen [Tylenol] 1,000 mg PO Q8H PRN 09/15/16 [Last Taken Unknown] Albuterol Sulfate [Albuterol Sulfate 2.5 MG/0.5ML] 1 vial IH DAILY 09/15/16 [ Last Taken Unknown] Albuterol Sulfate [Proair Hfa] 2 puff IH Q4H PRN 09/15/16 [Last Taken Unknown] Albuterol Sulfate/Ipratropium [Duoneb 2.5-0.5MG/3ML Soln] 3 ml IH QID #150 vial 09/15/16 [Last Taken Unknown] Aspirin [Aspirin Enteric Coated] 325 mg PO DAILY 09/15/16 [Last Taken Unknown] Budesonide/Formoterol Fumarate [Symbicort 160-4.5 Mcg Inhaler] 2 puff IH BID 07/03 [Last Taken Unknown] Doxycycline Monohydrate 100 mg PO BID #20 tablet 09/15/16 [Last Taken Unknown] Fluticasone Propionate [Flonase] 2 spray NS DAILY PRN 09/15/16 [Last Taken Unknown] Furosemide [Lasix] 20 mg PO DAILY 09/15/16 [Last Taken Unknown] Insulin Glargine,Hum.rec.anlog [Lantus] 35 units SC HS 09/15/16 [Last Taken Unknown] Losartan Potassium [Cozaar] 50 mg PO DAILY 09/15/16 [Last Taken Unknown] Multivitamins [Multivitamin Nish] 1 cap PO DAILY 09/15/16 [Last Taken Unknown] Polyethylene Glycol 3350 [Miralax] 17 gm PO DAILY 09/15/16 [Last Taken Unknown] Urea [Karina Lo 39] 1 applic TP BID 09/15/16 [Last Taken Unknown] traMADol HCL [Ultram] 50 mg PO QID PRN 09/15/16 [Last Taken Unknown] predniSONE [Prednisone] 2 tab PO DAILY 10/22/16 [Last Taken Unknown] Exam - Exam Vital Signs: Vital Signs - Last Taken Temp 36.7 C 10/22/16 15:13 Pulse 74 10/22/16 17:29 Resp 20 10/22/16 15:48 BP 157/70 10/22/16 17:29 Pulse Ox 92 10/22/16 15:38 Constitutional: Present: Alert, Oriented x3, Cooperative, Mild distress ENT Exam: Present: hearing grossly normal Eye Exam: bilateral eye: normal inspection Neck: Present: full range of motion, supple Back Exam: Present: normal inspection, no vertebral tenderness Breasts: Present: Exam deferred Respiratory: Present: respiratory distress - mild, accessory muscle use - mild, rhonchi, wheezing, expiration (prolonged) Cardiovascular/Chest: Present: normal peripheral pulses, regular rate, rhythm, no chest tenderness Peripheral Pulses: carotid (R): 2+, carotid (L): 2+, dorsalis-pedis (R): 2+, dorsalis-pedis (L): 2+, radial (R): 2+, radial (L): 2+ Abdomen: Present: soft, nontender, obese /Rectal: Present: Exam deferred Extremity: Present: non-tender, lower extremity edema - non pitting bilat Skin Exam: Present: warm/dry, no cyanosis, pallor Diagnostic Studies: Laboratory Results WBC 6.9 K/mm3 (4.0-10.5) 10/22/16 11:57 RBC 4.06 M/mm3 (4.7-6.0) L 10/22/16 11:57 Hgb 11.7 gm/dL (13.5-18.0) L 10/22/16 11:57 Hct 36.9 % (42.0-52.0) L 10/22/16 11:57 MCV 90.9 fl (78-100) 10/22/16 11:57 MCH 28.8 pg (27-31) 10/22/16 11:57 MCHC 31.7 g/dl (32-36) L 10/22/16 11:57 RDW 14.6 % (11.5-14.0) H 10/22/16 11:57 Plt Count 217 K/mm3 (150-450) 10/22/16 11:57 MPV 9.5 fl (6.0-9.5) 10/22/16 11:57 Immature Gran % (Auto) 0.30 % (0.001-0.429) 10/22/16 11:57 Immature Gran # (Auto) 0.02 K/mm3 (0.000-0.0310) 10/22/16 11:57 Neutrophils % 47.7 % (42-75.0) 10/22/16 11:57 Lymphocytes % 28.6 % (20-51) 10/22/16 11:57 Monocytes % 9.7 % (0.0-9) H 10/22/16 11:57 Eosinophils % 12.8 % (0.0-3.0) H 10/22/16 11:57 Basophils % 0.9 % (0.0-1.0) 10/22/16 11:57 Nucleated RBC % 0.0 k/mm3 (0-1) 10/22/16 11:57 Neutrophils # 3.3 K/mm3 (1.3-6.0) 10/22/16 11:57 Lymphocytes # 2.0 k/mm3 (1.5-3.5) 10/22/16 11:57 Monocytes # 0.7 k/mm3 (0.0-1.0) 10/22/16 11:57 Eosinophils # 0.9 k/mm3 (0.0-0.7) H 10/22/16 11:57 Absolute Basophils 0.1 k/mm3 (0.0-0.1) 10/22/16 11:57 Sodium 142 mmol/L (132-142) 10/22/16 11:57 Plasma Sodium 143 mmol/L (130-142) H 10/22/16 11:57 Potassium 4.1 mmol/L (3.4-4.6) 10/22/16 11:57 Chloride 105 mmol/L (97-106) 10/22/16 11:57 Carbon Dioxide 28.3 mmol/L (24-32.6) 10/22/16 11:57 Anion Gap 12.8 mmol/L (6.8-13.8) 10/22/16 11:57 BUN 20 mg/dL (6-23) 10/22/16 11:57 Creatinine 1.13 mg/dL (0.4-1.4) 10/22/16 11:57 Est GFR (Non-Af Amer) 67 mL/min (60-130) 10/22/16 11:57 BUN/Creatinine Ratio 17.7 (9.0-21.6) 10/22/16 11:57 Random Glucose 135 mg/dL (70-110) H 10/22/16 11:57 Lactic Acid, Venous 1.7 mmol/L (0.4-1.9) 10/22/16 11:57 Calcium 8.9 mg/dL (7.9-10.9) 10/22/16 11:57 Calcium Adj for Albumin 9.2 mg/dL (8.4-10.2) 10/22/16 11:57 Total Bilirubin 0.4 mg/dL (0.0-1.1) 10/22/16 11:57 AST 21 U/L (0-48) 10/22/16 11:57 ALT 33 U/L (19-67) 10/22/16 11:57 Alkaline Phosphatase 138 U/L (50-170) 10/22/16 11:57 Troponin I Less than 0.017 ng/ml (0.00-0.10) 10/22/16 11:57 B-Natriuretic Peptide 61 pg/mL (5-350) 10/22/16 11:57 Total Protein 7.1 gm/dL (6.2-8.2) 10/22/16 11:57 Albumin 3.2 gm/dl (3.4-5.0) L 10/22/16 11:57 Assessment/Plan - Narrative Narrative: Respiratory Failure with hypoxia - likely secondary to COPD exac - does not use O2 at home, dropped to 87% on RA with walking in ER 10/22/16 - supplemental O2 ordered, wean per RT protocol - Duoneb treatments QID - solumedrol 80 mg iv q 8 hours - day #1 - incentive spirometer q 1 hour COPD exac - likely exacerbated secondary to recent URI - Duoneb treatments QID - solumedrol 80 mg iv q 8 hours - day #1 - incentive spirometer q 1 hour - given severity of exacerbation, especially in light of respiratory failure - add rocephin 1 gm iv q 24 hours - day #1 - add azithromycin 500 mg iv q 24 hours - day #1 Sleep apnea - on cpap - cont cpap while in hospital - may use O2 in cpap as needed - watch oxygen saturation closely. Diastolic HF - Last echo in 2010 - ? need new echo - does not appear to be overtly fluid overloaded - no pitting edema, no JVD. Diabetes - blood sugars will likely increase given iv steroids - blood sugar checks orders with humalog sliding scale to cover as needed. Chronic Medical Conditions: - HTN/HLD (stable) - Gerd (stable) Code status: Full Code VTE: lovenox GI Proph: protonix - Assessment/Plan (1) Respiratory failure Problem: Acute Qualifiers: Chronicity: acute Respiratory failure complication: hypoxia Qualified Code(s): J96.01 - Acute respiratory failure with hypoxia (2) COPD exacerbation Problem: Acute (3) Diabetes 1.5, managed as type 1 Problem: Chronic (4) GERD (gastroesophageal reflux disease) Problem: Chronic Qualifiers: Esophagitis presence: esophagitis presence not specified (5) Sleep apnea Problem: Chronic Qualifiers: Sleep apnea type: unspecified type Qualified Code(s): G47.30 - Sleep apnea , unspecified (6) HTN (hypertension) Problem: Chronic Qualifiers: Hypertension type: essential hypertension Qualified Code(s): I10 - Essential (primary) hypertension (7) HLD (hyperlipidemia) Problem: Chronic Qualifiers: Hyperlipidemia type: unspecified Qualified Code(s): E78.5 - Hyperlipidemia , unspecified (8) Diastolic CHF Problem: Chronic Qualifiers: Congestive heart failure chronicity: chronic Qualified Code(s): I50.32 - Chronic diastolic (congestive) heart failure
[2016-10-22] MEDS ORDERED: METHYLPREDNISOLONE SOD SUCC 60 MG in WATER FOR INJ.,BACTERIOSTATIC 0 ML IV SCH (19:00)
[2016-10-22] MEDS: METHYLPREDNISOLONE SOD SUCC 80 MG in WATER FOR INJ.,BACTERIOSTATIC 0 ML IV SCH (21:09)
[2016-10-23] MEDS: METHYLPREDNISOLONE SOD SUCC 80 MG in WATER FOR INJ.,BACTERIOSTATIC 0 ML IV SCH ×3 (03:36→18:38)
[2016-10-23 05:50] LABS: Hematocrit 36.9 % (42.0-52.0); Mean Cell Volume 89.3 fl (78-100); Mean Corpuscular Hemoglobin 29.1 pg (27-31); Mean Corpuscular Hgb Conc 32.5 g/dl (32-36); Mean Platelet Volume 9.9 fl (6.0-9.5); Neutrophil # 4.6 K/mm3 (1.3-6.0); Neutrophil % 78.2 % (42-75.0); Platelet Count 241 K/mm3 (150-450); Red Blood Count 4.13 M/mm3 (4.7-6.0); Red Cell Distribution Width 14.3 % (11.5-14.0); White Blood Count 5.9 K/mm3 (4.0-10.5)
[2016-10-23] MEDS: ALBUTEROL SULFATE/IPRATROPIUM 3 ML NEBU IH SCH ×4 (06:09→18:20)
[2016-10-23] MEDS: PANTOPRAZOLE SODIUM 40 MG TABLET.EC PO SCH (07:35)
[2016-10-23] MEDS: INSULIN LISPRO 100 UNITS/ML VIAL SC SCH ×3 (07:40→17:30)
--- NOTE | 2016-10-23 08:21 | PN ---
Subjective - Date and Time Seen Date: 10/23/16 Time: 08:14 Subjective Narrative: Feels a little bit better. Still wheezing. Objective - Review of Systems Generalized/Overall Review: Denies: Chills, Fever EENTM: Reports: No Symptoms Reported Respiratory: Reports: Cough, Shortness of Breath, Wheezing Cardiac: Reports: Edema. Denies: Chest Pain, Palpitations Abdominal: Denies: Nausea, Vomiting Genitourinary Symptoms: Denies: Urgency, Frequency Musculoskeletal Complaints: Reports: Joint Pain - Vitals Vitals: Last Vital Signs Temp 37.0 C 10/23/16 03:00 Pulse 78 10/23/16 06:17 Resp 20 10/23/16 06:17 BP 186/82 10/23/16 03:00 Pulse Ox 91 10/23/16 06:09 - Abnormal Lab Findings Abnormal Lab Findings: Abnormal Lab Results 10/22/16 10/23/16 Range/Units 17:25 05:20 RBC 4.13 L (4.7-6.0) M/mm3 Hgb 12.0 L (13.5-18.0) gm/dL Hct 36.9 L (42.0-52.0) % RDW 14.3 H (11.5-14.0) % MPV 9.9 H (6.0-9.5) fl Immature Gran % (Auto) 0.90 H (0.001-0.429) % Immature Gran # (Auto) 0.05 H (0.000-0.0310) K/mm3 Neutrophils % 78.2 H (42-75.0) % Lymphocytes % 18.8 L (20-51) % Lymphocytes # 1.1 L (1.5-3.5) k/mm3 Urine Protein 15 H (NEGATIVE) mg/dL Urine Bacteria 2+ H (NONE) Urine Comment Culture ordered L - Exam Constitutional: Present: Alert, Oriented x3, Cooperative ENT Exam: Present: hearing grossly normal Neck: Present: supple Breasts: Present: Exam deferred Respiratory: Present: decreased breath sounds, crackles, wheezing Cardiovascular/Chest: Present: regular rate, rhythm, no JVD, no murmur Abdomen: Present: Normal bowel sounds, soft, nontender, obese Extremity: Present: no calf tenderness, pedal edema Assessment/Plan - Problems/Diagnosis (1) COPD exacerbation Problem: Acute Narrative: likely acute bronchitis. continue with present IVF, IV antibiotics and breathing treatments. (2) Respiratory failure Problem: Resolved Qualifiers: Chronicity: acute Respiratory failure complication: hypoxia Qualified Code(s): J96.01 - Acute respiratory failure with hypoxia (3) Diastolic CHF Problem: Chronic Qualifiers: Congestive heart failure chronicity: chronic Qualified Code(s): I50.32 - Chronic diastolic (congestive) heart failure (4) HLD (hyperlipidemia) Problem: Chronic Qualifiers: Hyperlipidemia type: unspecified Qualified Code(s): E78.5 - Hyperlipidemia , unspecified (5) HTN (hypertension) Problem: Chronic Qualifiers: Hypertension type: essential hypertension Qualified Code(s): I10 - Essential (primary) hypertension (6) Sleep apnea Problem: Chronic Qualifiers: Sleep apnea type: unspecified type Qualified Code(s): G47.30 - Sleep apnea , unspecified
[2016-10-23] MEDS ORDERED: ACETAMINOPHEN 325 MG TABLET PO PRN (13:20)
[2016-10-23] MEDS ORDERED: ONDANSETRON HCL/PF 2 MG/ML VIAL IV PRN (15:46)
[2016-10-23] MEDS: ENOXAPARIN SODIUM 40 MG/0.4 ML SYRG SC SCH (16:10)
[2016-10-23] MEDS: AZITHROMYCIN 500 MG in DEXTROSE 5 % IN WATER 250 ML IV SCH ×2 (16:57)
[2016-10-24] MEDS: METHYLPREDNISOLONE SOD SUCC 80 MG in WATER FOR INJ.,BACTERIOSTATIC 0 ML IV SCH ×2 (02:35→11:21)
[2016-10-24] MEDS: ALBUTEROL SULFATE/IPRATROPIUM 3 ML NEBU IH SCH ×3 (06:06→14:13)
[2016-10-24] MEDS: PANTOPRAZOLE SODIUM 40 MG TABLET.EC PO SCH (06:55)
[2016-10-24] MEDS: INSULIN LISPRO 100 UNITS/ML VIAL SC SCH ×2 (06:55→11:21)
--- NOTE | 2016-10-24 10:13 | DS ---
(1) COPD exacerbation Diagnosis(s): acute exacerbation resolved. Problem: Acute (2) Respiratory failure Problem: Resolved Qualifiers: Chronicity: acute Respiratory failure complication: hypoxia Qualified Code(s): J96.01 - Acute respiratory failure with hypoxia (3) Diastolic CHF Problem: Chronic Qualifiers: Congestive heart failure chronicity: chronic Qualified Code(s): I50.32 - Chronic diastolic (congestive) heart failure (4) HLD (hyperlipidemia) Problem: Chronic Qualifiers: Hyperlipidemia type: unspecified Qualified Code(s): E78.5 - Hyperlipidemia , unspecified (5) HTN (hypertension) Problem: Chronic Qualifiers: Hypertension type: essential hypertension Qualified Code(s): I10 - Essential (primary) hypertension (6) Sleep apnea Problem: Chronic Qualifiers: Sleep apnea type: unspecified type Qualified Code(s): G47.30 - Sleep apnea , unspecified Description of Stay: Michael Lindsey, is a 75 year old male with a PMH of multi-factorial dyspnea, HTN , orthostatic hypotension, diastolic dysfunction, diabetes, COPD, HLD, YARITZA on CPAP who presented to the ER on 10/22/2016 with c/o dyspnea and wheezing for 4 days. History of URI symptoms for 2 weeks. c/o increasing lower extremity edema. Last stress test 2009 showed mild fixed perfusion defect involving the apical region but no stress induced ischemia. Last echo 07/25/2010 normal ef, mild LVH and diastolic dysfunction. ER workup revealed non acute ekg. normal wbc. neg trop. CXR showed hypoventialtion , no acute cardiopulmonary findings. patient was given 2 nebulizer treatments with 80 mg iv depomedrol and 40 mg iv solumedrol. walking decreased patient's oxygen saturation to 87% on RA - patient does not use oxygen at home. Patient to be admitted for COPD exaceration and respiratory failure with hypoxia. He was started on IV Solumedrol, breathing treatments RTC and IV antibiotics. Patient oxygenation improved. He is stable to be discharged today. Procedures Performed: none Discharge Disposition: Home self care Disposition: Home self-care Condition: Good Discharge Activity: Activity as tolerated Discharge Diet: Consistent carbs, Low salt Referrals: Familia Figueroa MD [Primary Care Provider] - Additional Patient Instructions (free text): TCM appt. Follow up with PCP in 1 week. Prescriptions (Any new or edited meds): Levofloxacin [Levaquin] 500 mg PO DAILY #7 tablet Complete Home Medications List: Complete Home Medication List: Calcium Carbonate/Vitamin D3 [Calcium 600 + Vit D 400 Tablet] 1 tab PO BID 05/10 Diltiazem HCl [Diltiazem 24Hr ER] 240 mg PO DAILY 05/10/12 Duloxetine HCl [Cymbalta] 60 mg PO DAILY 05/10/12 Metformin HCl 1,000 mg PO BID 05/10/12 Omeprazole [Prilosec] 40 mg PO DAILY 05/10/12 Spironolactone [Aldactone] 25 mg PO DAILY 05/10/12 Tamsulosin HCl 0.4 mg PO DAILY 05/10/12 Atorvastatin Calcium [Lipitor] 40 mg PO DAILY 08/31/13 B2/Vits A,C,E/Lut/Zeaxanth/Min [Icaps Tablet] 2 tab PO BID 08/31/13 Donepezil HCl [Aricept] 5 mg PO HS 08/31/13 Blood-Glucose Meter [Prodigy] 1 each MC TID 07/20/14 Acetaminophen [Tylenol] 1,000 mg PO Q8H PRN 09/15/16 Aspirin [Aspirin Enteric Coated] 325 mg PO DAILY 09/15/16 Budesonide/Formoterol Fumarate [Symbicort 160-4.5 Mcg Inhaler] 2 puff IH BID 07/03 Fluticasone Propionate [Flonase] 2 spray NS DAILY PRN 09/15/16 Furosemide [Lasix] 20 mg PO DAILY 09/15/16 Insulin Glargine,Hum.rec.anlog [Lantus] 35 units SC HS 09/15/16 Losartan Potassium [Cozaar] 50 mg PO DAILY 09/15/16 Multivitamins [Multivitamin Nish] 1 cap PO DAILY 09/15/16 Polyethylene Glycol 3350 [Miralax] 17 gm PO DAILY 09/15/16 traMADol HCL [Ultram] 50 mg PO QID PRN 09/15/16 Albuterol Sulfate/Ipratropium [Duoneb 2.5-0.5MG/3ML Soln] 3 ml IH DAILY predniSONE [Prednisone] 2 tab PO DAILY 10/22/16 Levofloxacin [Levaquin] 500 mg PO DAILY #7 tablet 10/24/16
[2016-10-24 12:23] VITALS: BP 177/72
[2016-10-24] MEDS: ENOXAPARIN SODIUM 40 MG/0.4 ML SYRG SC SCH (15:14)
== END 2016-10-24 17:03 | disposition home or self-care (01) | DRG 189 ==
LOC: ER 11:29 → MS 14:13 → OBSVTOIN 16:04
PROVIDERS: ADMIT Nurse Practitioner Critical Care Medicine; ATTEND Internal Medicine
DX: J96.01 Acute respiratory failure with hypoxia (principal); J44.0 Chronic obstructive pulmonary disease with (acute) lower respiratory infection; J44.1 Chronic obstructive pulmonary disease with (acute) exacerbation; I50.32 Chronic diastolic (congestive) heart failure; J20.9 Acute bronchitis, unspecified; E11.9 Type 2 diabetes mellitus without complications; I10 Essential (primary) hypertension; E78.5 Hyperlipidemia, unspecified; Z87.891 Personal history of nicotine dependence; Z79.82 Long term (current) use of aspirin

== ENCOUNTER 2020-05-23 09:15 | Observation (INO) ==
[2020-05-23] MEDS ORDERED: METHYLPREDNISOLONE SOD SUCC/PF 125 MG/2 ML VIAL IV ONE (09:22)
[2020-05-23] MEDS ORDERED: FUROSEMIDE 10 MG/ML VIAL IV ONE (09:26)
--- NOTE | 2020-05-23 09:34 | ERNOTE ---
Dyspnea - Date Date of Service: 05/23/20 - General Presenting Symptoms: difficulty of breathing Time Seen by Provider: 05/23/20 09:21 Source: patient Exam Limitations: clinical condition - Immun/Allergies/Home Medications Immunizations: IMMUNIZATION HX Immunizations Up to Date Yes History of Influenza Vaccine Yes Hx Pneumococcal Vaccination Yes Allergies/Adverse Reactions: Allergies terbinafine HCl [From Lamisil] Allergy (Intermediate, Verified 04/13/20 11:45) rash, feet swell, itch Home Medications: HOME MEDICATIONS Blood-Glucose Meter [Prodigy] 1 ea [facility] TID 07/20/14 [Last Taken Unknown] cocoa butter-shark liver oil rectal suppository 1 supp AK DAILY PRN #24 ea 01/08/18 [Last Taken Unknown] lancing device with lancets kit See Dose Instructions .ROUTE .MEDSUPPLY #100 ea 05/26/18 [Last Taken Unknown] anqO-R8-V-N-zqyyxa-jpddauq-min 3,300 unit-5 mg-200mg-75 unit tablet ER 2 tab PO BID #120 tab 09/09/18 [Last Taken Unknown] carboxymethylcellulose sodium 0.5 % eye drops 1 drp OP DAILY PRN #15 ml 10/10/18 [Last Taken Unknown] psyllium husk (aspartame) 3.4 gram/5.8 gram oral powder 3.4 g PO DAILY #1040 g 10/29/18 [Last Taken Unknown] fluticasone furoate 100 mcg-vilanterol 25 mcg/dose inhalation powder 1 inh IH DAILY #60 ea 11/13/18 [Last Taken Unknown] nebulizer accessories See Dose Instructions .ROUTE .MEDSUPPLY #1 ea 12/17/18 [Last Taken Unknown] Insulin Glargine,Hum.rec.anlog [Lantus Solostar] 35 unit SQ BID 06/12/19 [Last Taken Unknown] tamsulosin 0.4 mg capsule See Rx Instructions .ROUTE .COMPLEX #28 capsule 06/19/19 [Last Taken Unknown] blood sugar diagnostic See Dose Instructions .ROUTE .MEDSUPPLY #300 ea 06/24/19 [Last Taken Unknown] sodium chloride 0.65 % nasal spray aerosol See Rx Instructions .ROUTE .COMPLEX #44 ml 06/30/19 [Last Taken Unknown] furosemide 40 mg tablet 40 mg PO .TTHSS #48 tab 09/09/19 [Last Taken Unknown] furosemide 80 mg tablet 80 mg PO .MWF #36 tab 09/09/19 [Last Taken Unknown] propylene glycol 0.6 % eye drops 1 drp OP DAILY PRN #20 ml 09/09/19 [Last Taken Unknown] lancing device with lancets kit See Rx Instructions .ROUTE .COMPLEX #200 unknown measurement unit code: kit 11/25/19 [Last Taken Unknown] multivitamin 1 tab PO DAILY #90 tab 12/04/19 [Last Taken Unknown] pen needle,diabetic dual safty 30 gauge x 3/16" See Rx Instructions .ROUTE .COMPLEX #100 unknown measurement unit code: not specified 12/16/19 [Last Taken Unknown] albuterol sulfate 90 mcg/actuation aerosol inhaler See Rx Instructions .ROUTE .COMPLEX #8.5 unknown measurement unit code: gram 01/01/20 [Last Taken Unknown] atorvastatin 40 mg tablet See Rx Instructions .ROUTE .COMPLEX #28 unknown measurement unit code: tablet 02/05/20 [Last Taken Unknown] spironolactone 25 mg tablet See Rx Instructions .ROUTE .COMPLEX #28 unknown measurement unit code: tablet 02/05/20 [Last Taken Unknown] insulin glargine 100 unit/mL (3 mL) subcutaneous pen See Rx Instructions .ROUTE .COMPLEX #30 unknown measurement unit code: ml 02/10/20 [Last Taken Unknown] alcohol swabs 1 pad TP TID #100 ea 03/10/20 [Last Taken Unknown] amoxicillin 500 mg-potassium clavulanate 125 mg tablet 1 tab PO BID #20 tab 03/15/20 [Last Taken Unknown] clotrimazole-betamethasone 1 %-0.05 % topical cream See Rx Instructions .ROUTE .COMPLEX #45 unknown measurement unit code: gram 04/06/20 [Last Taken Unknown] acetaminophen 500 mg tablet 500 mg PO DAILY #30 tab 04/07/20 [Last Taken Unknow n] aspirin 325 mg tablet,delayed release 325 mg PO DAILY #90 tab 04/14/20 [Last Taken Unknown] calcium carbonate 600 mg (1,500 mg)-vitamin D3 400 unit tablet 1 tab PO BID #180 tab 04/14/20 [Last Taken Unknown] losartan 50 mg tablet 100 mg PO DAILY #180 tab 04/14/20 [Last Taken Unknown] cyanocobalamin (vitamin B-12) 1,000 mcg tablet See Rx Instructions .ROUTE .COMPLEX #12 unknown measurement unit code: tablet 04/21/20 [Last Taken Unknown] ferrous sulfate 325 mg (65 mg iron) tablet See Rx Instructions .ROUTE .COMPLEX #28 unknown measurement unit code: tablet 04/21/20 [Last Taken Unknown] fexofenadine 180 mg tablet See Rx Instructions .ROUTE .COMPLEX #28 unknown measurement unit code: tablet 04/21/20 [Last Taken Unknown] omeprazole 40 mg capsule,delayed release See Rx Instructions .ROUTE .COMPLEX #28 unknown measurement unit code: capsule 04/21/20 [Last Taken Unknown] vit A 7,160 unit-C 113 mg-E 100 depl-wzhy-wlmnkn tablet,delayed rel. 2 tab PO BID #120 tab 04/21/20 [Last Taken Unknown] tiotropium bromide 2.5 mcg/actuation mist for inhalation See Rx Instructions .ROUTE .COMPLEX #4 unknown measurement unit code: gram 05/02/20 [Last Taken Unknown] diltiazem HCl 240 mg capsule,extended release 24 hr See Rx Instructions .ROUTE .COMPLEX #28 capsule 05/16/20 [Last Taken Unknown] donepezil 5 mg tablet See Rx Instructions .ROUTE .COMPLEX #28 tablet 05/16/20 [Last Taken Unknown] duloxetine 30 mg capsule,delayed release See Rx Instructions .ROUTE .COMPLEX #28 unknown measurement unit code: capsule 05/16/20 [Last Taken Unknown] primidone 50 mg tablet See Rx Instructions .ROUTE .COMPLEX #28 tablet 05/16/20 [Last Taken Unknown] ipratropium 0.5 mg-albuterol 3 mg (2.5 mg base)/3 mL nebulization soln 3 ml IH TID #90 ml 05/18/20 [Last Taken Unknown] pregabalin 100 mg capsule 100 mg PO TID #90 cap 05/18/20 [Last Taken Unknown] sennosides 8.6 mg tablet See Rx Instructions .ROUTE .COMPLEX #56 tablet 05/18/20 [Last Taken Unknown] budesonide-formoterol HFA 160 mcg-4.5 mcg/actuation aerosol inhaler 2 inh INHALATION BID #10.2 g 05/23/20 [Last Taken Unknown] - History of Present Illness Narrative: Patient presents to the ED via EMS for SOB. He lives at the [facility]. He was Dx with Covid the 10th of last month. Had been doing ok until yesterday evening when he became more SOB. SOB worsened throughout the night and this am was noted to have sats in the 70s so EMS called. He wears 2L NC normally. He feels chest tightness since last night also. No specific pain or lpleuritic pain. No new leg swelling. EMS increase dhis oxygen and he felt better but continued with significant work of breathing here. No fever noted. Severity: severe Treatment BOOKING CLERK: paramedics Initiating event: Reports: unknown Frequency of episodes: Reports: other - he has not felt exactly like this before Modifying Factors - (Improves): Reports: oxygen Modifying Factors (Worsens): Reports: nothing Associated Symptoms-Dyspnea: Reports: cough. Denies: sweating, palpitations Prior Treatment: Denies: recently seen Review of Systems - Review of Systems Constitutional: Absent: fever EYE: Present: no symptoms reported ENT: Absent: sore throat Respiratory: Present: shortness of breath Cardiology: Present: chest pain Gastrointestinal/Abdominal: Absent: abdominal pain Genitourinary: Absent: dysuria Neurological: Absent: weakness All Other Systems: All systems neg except as marked Medical History (Last Reviewed 05/23/20 @ 09:31 by Danny Garcia MD) Urinary incontinence Anemia Onset Date: ~2005 Anxiety Onset Date: ~2002 Asthma Onset Date: Unknown COPD (chronic obstructive pulmonary disease) Onset Date: Unknown Callus of foot Onset Date: 06/19/12 Depression Onset Date: Unknown Diabetes mellitus Onset Date: 06/19/04 Diastolic dysfunction Onset Date: Unknown Diverticulosis Onset Date: Unknown Dyspnea Onset Date: Unknown GERD (gastroesophageal reflux disease) Onset Date: ~1999 Gastroparesis Onset Date: Unknown diabetic gastroparesis Hammer toe Onset Date: 06/19/12 Hearing loss Onset Date: Unknown Hemorrhoids Onset Date: Unknown Hiatal hernia Onset Date: Unknown Hyperlipidemia Onset Date: ~2004 Macular degeneration Onset Date: 12/26/02 Migraine Onset Date: ~2002 Morbid obesity Onset Date: ~2002 Obstructive sleep apnea Onset Date: 10/24/10 CPAP 1 cm H@) with heated humidifier Osteoarthritis Onset Date: ~2001 Peripheral neuropathy Onset Date: Unknown Prostatic hypertrophy Onset Date: 04/09/06 benign Hip pain Onset Date: Unknown left Knee pain, right Onset Date: ~2013 Patellar grind SP TKA Lower extremity edema Onset Date: 06/19/12 Onychomycosis Onset Date: 06/19/12 Rectal polyp Onset Date: Unknown transverse colon Restless legs Onset Date: 10/08/06 Toe pain Onset Date: 06/19/12 Surgical History: Surgical History (Last Reviewed 05/23/20 @ 09:31 by Danny Garcia MD) H/O arthroscopy of right knee Onset Date: 08/25/14 06/30/01 Dr Amaral. 08/08/10 Dr Mccullough. 08/25/14 [place]. H/O cystoscopy Onset Date: 03/08/10 [facility]-01/21/08, 03/08/10 H/O shoulder surgery Onset Date: 09/28/04 Dr Amaral- for bone spur and torn ligament H/O: vasectomy Onset Date: History of arthroplasty of right knee Onset Date: 09/07/13 [place] History of cholecystectomy Onset Date: 01/30/00 [place] History of esophagogastroduodenoscopy (EGD) Onset Date: 03/19/11 [facility]-04/02/06-healing ulcers. 10/14/09 moderate chronic inflammation. 03/19/11 [facility]-mild reflux, esophagitis, gastroparesis. Hx of cataract surgery Onset Date: 06/25/06 04/16/06 left 06/25/06 Right Hx of colonoscopy Onset Date: 08/11/18 01/03/02 [facility]. normal. 04/02/06 Tinguely-tubular adenoma, hyperplastic polyp. Extensive sigmoid diverticulosis. 10/14/09 Tinguely-tubular adenoma. 08/11/18 [place]-tubular adenoma x3. Severe sigmoid diverticulosis, external hemorrhoids. Recheck 3-5 yrs. Male circumcision Onset Date: 01/21/08 Dr Pascual S/P epidural steroid injection Onset Date: 05/16/05 C5-6 Family History: Family History (Last Reviewed 05/23/20 @ 09:31 by Danny Garcia MD) Brother , age 45-[place] Heart disease Diabetes bilateral leg amputation Brother , age 58-cirrhosis of liver Cirrhosis Alcohol abuse Father , age 77[place] Heart disease [place] Mother , age 77-stroke CVA (cerebral vascular accident) Heart disease Hypertension Diabetes gangrene Sister , age 50s-colon cancer Cancer colon-dx age 50's Brother , age 67-unsure of cause Mental health problem Brother Alive and well Sister Alive and well 2 sisters Social History: (Last Reviewed 05/23/20 @ 09:31 by Danny Garcia MD) Social History: Marital status: / number of children: 3 current occupational status: retired current occupation: retired-[employer] Highest level of school completed/degree received: high school graduate Service: Yes branch: [employer] Tobacco: Smoking Status: Former smoker Tobacco: How many years used: 25 Alcohol: alcohol intake: never Substance Use: substance use type: does not use Dietary Habits: caffeine: Yes Personal Safety: victim of physical abuse: No victim of emotional abuse: No Physical Exam - Physical Exam General Appearance: Present: alert, moderate distress, other - he has significant work of breathing, will emergently initialte BiPap to assist with that. Head Exam: Present: normal inspection, no evidence of injury Eye Exam: Normal inspection: bilateral, PERRL: bilateral Ears, Nose, Throat: Present: normal ENT inspection Neck: Present: normal inspection Respiratory: Present: wheezing, other - moderate to severe sidtress, wheezing throughout. Tachypnea Cardiovascular/Chest: Present: regular rate, rhythm, normal peripheral pulses Gastrointestinal/Abdominal: Present: normal bowel sounds, nontender, nondistended, soft Back Exam: Absent: CVA tenderness (R), CVA tenderness (L) Extremity Exam: Present: extremity edema, other - no DVT findings Neurological Exam: Present: alert, other - no acute unilateral focal motor or sensory deficts Skin Exam: Present: normal color, warm/dry Progress - Results and Orders Patient's Lab Results:: I have reviewed the patient's lab results. - Vital Signs Patient's Vital Signs:: I have reviewed the patient's vital signs. - EKG EKG #1 EKG: NSR EKG read: Interp. by me EKG Comments: NSR rate 96, ectopy noted. Non-specific ST/T wave changes, no STEMI noted - X-Ray X-Ray #1 X-Ray: chest Interpretation: Interp. by me X-ray Comments: I personally reviewed x-ray image as well as official radiology report - CT/Ultrasound CT/Ultrasound Narrative: I reviewed the official radiology report for CT Chest PE protocol - Progress/Reassessment Progress Note-Subjective: 05/23/20 12:17 Patient improved with BiPap and continuous neb. Work of breathing improved. THis appears to me COPD exacerbation without evidence of PE/aortic dissection, CHF or secondary pneumonia. I discussed the case with Dr Figueroa, he is not admitting inpatient so I spoke with Dr Young who is chief cardiopulmonary technologist. She would like to hold on admission and have him taken off the bipap to see how he does with possible return to [facility]. I will go ahead and do that at this time and we will see how he does. 05/23/20 12:51 patient did not tolerate being off bipap. I restarted bipap and began another continuous neb, he still has wheezing. Discussed again with Dr Young who will admit. Departure Clinical Impression: Hypoxia, Respiratory distress, COPD exacerbation - Departure Disposition: Still a patient Condition: Fair Referrals: Familia Figueroa MD [Primary Care Provider] -
[2020-05-23] MEDS: ALBUTEROL SULFATE 2.5 MG/0.5 ML VIAL.NEB IH SCH ×6 (09:35→21:43)
[2020-05-23 09:56] LABS: Hematocrit 36.7 % (42.0-52.0); Hemoglobin 11.4 gm/dL (13.5-18.0); Mean Corpuscular Hemoglobin 27.9 pg (27-31); Mean Corpuscular Hgb Conc 31.1 g/dl (32-36); Mean Platelet Volume 9.6 fl (8-11.3); Neutrophil # 5.2 K/mm3 (1.3-6.0); Neutrophil % 61.9 % (42-75.0); Platelet Count 198 K/mm3 (150-450); Red Blood Count 4.08 M/mm3 (4.7-6.0); White Blood Count 8.4 K/mm3 (4.0-10.5)
[2020-05-23 10:17] LABS: ALT 40 U/L (19-67); AST 28 U/L (0-48); Albumin * 3.3 gm/dl (3.4-5.0); Alkaline Phosphatase * 179 U/L (50-170); Anion Gap 11.4 mmol/L (6.8-13.8); BNP * 118 pg/mL (5-650); BUN/Creatinine Ratio 15.5 (9.0-21.6); Bilirubin, Total 0.4 mg/dL (0.0-1.1); Blood Urea Nitrogen 23 mg/dL (6-23); Ca. Corrected For Albumin 9.3 mg/dL (8.4-10.2); Calcium * 9.1 mg/dL (7.9-10.9); Carbon Dioxide 27.9 mmol/L (24-32.6); Chloride 102 mmol/L (97-106); Glucose * 187 mg/dL (70-110); Potassium 4.3 mmol/L (3.4-4.6); Sodium 137 mmol/L (132-142); Total Protein 7.2 gm/dL (6.2-8.2)
[2020-05-23 10:20] LABS: Prothrombin Time (Patient) 10.9 Seconds (9.1-10.7); Troponin I Less than 0.017 ng/mL (0.00-0.10)
[2020-05-23 10:27] LABS: INR 1.11 INR (0.92-1.08); Partial Thrombolplastin Time 26.5 Seconds (24-32)
[2020-05-23] MEDS ORDERED: ALBUTEROL SULFATE 2.5 MG/0.5 ML VIAL.NEB IH ONE (12:47)
[2020-05-23] MEDS ORDERED: ACETAMINOPHEN 325 MG TABLET PO PRN (15:01)
[2020-05-23] MEDS ORDERED: guaiFENesin 100 MG/5 ML SYRUP PO PRN (15:09)
[2020-05-23] MEDS ORDERED: PROPYLENE GLYCOL 0.6% OP PRN (15:11)
[2020-05-23] MEDS ORDERED: GLYCERIN/PROPYLENE GLYCOL 150 DROP BTL OP PRN (15:11)
[2020-05-23] MEDS ORDERED: ALBUTEROL SULFATE 2.5 MG/0.5 ML VIAL.NEB IH PRN ×2 (15:15→19:41)
[2020-05-23] MEDS ORDERED: ROSUVASTATIN CALCIUM 20 MG TABLET PO SCH ×2 (15:15→21:00)
[2020-05-23] MEDS ORDERED: SPIRONOLACTONE 25 MG TABLET PO SCH (15:15)
[2020-05-23] MEDS ORDERED: INSULIN GLARGINE SCH (15:15)
[2020-05-23] MEDS ORDERED: [UNRECOGNIZED DRUG - OTHER] SCH (15:15)
[2020-05-23] MEDS ORDERED: TAMSULOSIN HCL 0.4 MG CAP.SR.24H PO SCH ×2 (15:15→19:00)
[2020-05-23] MEDS ORDERED: CYANOCOBALAMIN 1,000 MCG TABLET PO SCH ×2 (15:15→19:00)
[2020-05-23] MEDS ORDERED: ASPIRIN 325 MG TABLET.DR PO SCH (15:15)
[2020-05-23] MEDS ORDERED: FUROSEMIDE 80 MG TABLET PO SCH ×2 (15:15→19:00)
[2020-05-23] MEDS ORDERED: SENNOSIDES 8.6 MG TABLET PO PRN (15:15)
[2020-05-23] MEDS ORDERED: LEVOFLOXACIN IN DEXTROSE 5 % 500 MG/100 ML BAG IV SCH (15:30)
[2020-05-23] MEDS ORDERED: LOSARTAN POTASSIUM 50 MG TABLET PO SCH ×2 (15:30→19:00)
[2020-05-23] MEDS ORDERED: [UNRECOGNIZED DRUG - OTHER] IH SCH (15:30)
[2020-05-23] MEDS: ALBUTEROL SULFATE/IPRATROPIUM 3 ML NEBU IH SCH ×3 (16:20→22:01)
--- NOTE | 2020-05-23 18:01 | HP ---
Chief Complaint - Chief Complaint Date of Service: 05/23/20 Time of Service: 17:39 Chief Complaint: I have had trouble breathing since yesterday. History of Present Illness: 79-year-old male with past medical history of COPD, former smoker, type 2 diabetes, hypertension, morbid obesity, hyperlipidemia, RLS, YARITZA on CPAP, BPH, chronic anemia, diverticular disease, GERD, was evaluated in the ER after being brought by EMS from the [facility] for worsening shortness of breath and significant wheezing. The patient has a long history of COPD and uses a CPAP machine at night for his YARITZA and is oxygen dependent by nasal cannu la during the day. However he was diagnosed with COVID-19 pneumonia almost a month ago and was initially doing well but developed difficulty breathing yesterday. The patient denies any fever or chills but says his at home breathing treatments and oxygen were not helping his breathing. Nursing staff became concerned when the patient's wheezing worsened and he started desaturating late last night and early this morning. Decision to transfer him to the ER for further evaluation was made and patient was brought in. Upon arriving to the ER the patient was noted to have respiratory difficulty and required being placed on a BiPAP machine, with that his breathing improved but subsequently he felt an attempt to wean him off of the machine. He was treated with multiple breathing treatments and Solu-Medrol while in the ER which helped, however his breathing issues persisted. Medical History (Last Reviewed 05/23/20 @ 16:32 by Sierra Tompkins RN) Urinary incontinence Anemia Onset Date: ~2005 Anxiety Onset Date: ~2002 Asthma Onset Date: Unknown COPD (chronic obstructive pulmonary disease) Onset Date: Unknown Callus of foot Onset Date: 06/19/12 Depression Onset Date: Unknown Diabetes mellitus Onset Date: 06/19/04 Diastolic dysfunction Onset Date: Unknown Diverticulosis Onset Date: Unknown Dyspnea Onset Date: Unknown GERD (gastroesophageal reflux disease) Onset Date: ~1999 Gastroparesis Onset Date: Unknown diabetic gastroparesis Hammer toe Onset Date: 06/19/12 Hearing loss Onset Date: Unknown Hemorrhoids Onset Date: Unknown Hiatal hernia Onset Date: Unknown Hyperlipidemia Onset Date: ~2004 Macular degeneration Onset Date: 12/26/02 Migraine Onset Date: ~2002 Morbid obesity Onset Date: ~2002 Obstructive sleep apnea Onset Date: 10/24/10 CPAP 1 cm H@) with heated humidifier Osteoarthritis Onset Date: ~2001 Peripheral neuropathy Onset Date: Unknown Prostatic hypertrophy Onset Date: 04/09/06 benign Hip pain Onset Date: Unknown left Knee pain, right Onset Date: ~2013 Patellar grind SP TKA Lower extremity edema Onset Date: 06/19/12 Onychomycosis Onset Date: 06/19/12 Rectal polyp Onset Date: Unknown transverse colon Restless legs Onset Date: 10/08/06 Toe pain Onset Date: 06/19/12 Surgical History: Surgical History (Last Reviewed 05/23/20 @ 16:33 by Sierra Tompkins, LUIS) H/O arthroscopy of right knee Onset Date: 08/25/14 06/30/01 Dr Amaral. 08/08/10 Dr Mccullough. 08/25/14 [facility]. H/O cystoscopy Onset Date: 03/08/10 Ankur-01/21/08, 03/08/10 H/O shoulder surgery Onset Date: 09/28/04 Dr Rizo for bone spur and torn ligament H/O: vasectomy Onset Date: ~1970 History of arthroplasty of right knee Onset Date: 09/07/13 [facility]-RTK History of cholecystectomy Onset Date: 01/30/00 Noel-lap History of esophagogastroduodenoscopy (EGD) Onset Date: 03/19/11 [facility]-04/02/06-healing ulcers. 10/14/09 moderate chronic inflammation. 03/19/11 [facility]-mild reflux, esophagitis, gastroparesis. Hx of cataract surgery Onset Date: 06/25/06 04/16/06 left 06/25/06 Right Hx of colonoscopy Onset Date: 08/11/18 01/03/02 [facility]. normal. 04/02/06 Tinguely-tubular adenoma, hyperplastic polyp. Extensive sigmoid diverticulosis. 10/14/09 Tinguely-tubular adenoma. 08/11/18 Bagan-tubular adenoma x3. Severe sigmoid diverticulosis, external hemorrhoids. Recheck 3-5 yrs. Male circumcision Onset Date: 01/21/08 Dr Pascual S/P epidural steroid injection Onset Date: 05/16/05 C5-6 Family History: Family History (Last Reviewed 05/23/20 @ 16:33 by Sierra Tompkins, RN) Brother , age 45-[place] Diabetes bilateral leg amputation Heart disease Brother , age 58-cirrhosis of liver Alcohol abuse Cirrhosis Father , age 77-[place] Heart disease [place] Mother , age 77-stroke Diabetes gangrene Hypertension Heart disease CVA (cerebral vascular accident) Sister , age 50s-colon cancer Cancer colon-dx age 50's Brother , age 67-unsure of cause Mental health problem Brother Alive and well Sister Alive and well 2 sisters Social History: (Last Reviewed 05/23/20 @ 16:33 by Sierra Tompkins RN) Social History: Marital status: / number of children: 3 current occupational status: retired current occupation: retired-[employer] Highest level of school completed/degree received: high school graduate Service: Yes branch: [employer] Tobacco: Smoking Status: Former smoker Tobacco: How many years used: 25 Alcohol: alcohol intake: never Substance Use: substance use type: does not use Dietary Habits: caffeine: Yes Personal Safety: victim of physical abuse: No victim of emotional abuse: No Peds Patient Hx - Developmental: No Pertinent Hx Peds Patient Hx - Medical: No Pertinent Hx Peds Patient Hx - Cardiac/Respiratory: No Pertinent Hx Peds Patient Hx - Surgical: No Surgical History Patient History - Cancer: No Hx of Cancer Review Of Systems (GEN) - Review of Systems Generalized/Overall Review: Present: No Symptoms Reported EENTM: Present: No Symptoms Reported Respiratory: Present: Shortness of Breath, Wheezing Cardiac: Present: No Symptoms Reported Abdominal: Present: No Symptoms Reported Genitourinary: Present: No Symptoms Reported Musculoskeletal: Present: No Symptoms Reported Neurological: Present: No Symptoms Reported Skin: Present: No Symptoms Reported Endocrine: Present: No Symptoms Reported Immunizations: IMMUNIZATION HX Immunizations Up to Date Yes History of Influenza Vaccine Yes Hx Pneumococcal Vaccination Yes Allergies/Adverse Reactions: Allergies Allergy/AdvReac Type Severity Reaction Status Date / Time terbinafine HCl Allergy Intermediate rash, feet Verified 04/13/20 11:45 [From Lamisil] swell, itch Home Medications: HOME MEDICATIONS Blood-Glucose Meter [Prodigy] 1 ea MC TID 07/20/14 [Last Taken Unknown] cocoa butter-shark liver oil rectal suppository 1 supp DE DAILY PRN #24 ea 01/08/18 [Last Taken Unknown] lancing device with lancets kit See Dose Instructions .ROUTE .MEDSUPPLY #100 ea 05/26/18 [Last Taken Unknown] ijaZ-K2-E-R-ashtsq-xpdmarv-min 3,300 unit-5 mg-200mg-75 unit tablet ER 2 tab PO BID #120 tab 09/09/18 [Last Taken Unknown] carboxymethylcellulose sodium 0.5 % eye drops 1 drp OP DAILY PRN #15 ml 10/10/18 [Last Taken Unknown] psyllium husk (aspartame) 3.4 gram/5.8 gram oral powder 3.4 g PO DAILY #1040 g 10/29/18 [Last Taken Unknown] fluticasone furoate 100 mcg-vilanterol 25 mcg/dose inhalation powder 1 inh IH D AILY #60 ea 11/13/18 [Last Taken Unknown] nebulizer accessories See Dose Instructions .ROUTE .MEDSUPPLY #1 ea 12/17/18 [Last Taken Unknown] Insulin Glargine,Hum.rec.anlog [Lantus Solostar] 35 unit SQ BID 06/12/19 [Last Taken Unknown] tamsulosin 0.4 mg capsule See Rx Instructions .ROUTE .COMPLEX #28 capsule 06/19/19 [Last Taken Unknown] blood sugar diagnostic See Dose Instructions .ROUTE .MEDSUPPLY #300 ea 06/24/19 [Last Taken Unknown] sodium chloride 0.65 % nasal spray aerosol See Rx Instructions .ROUTE .COMPLEX #44 ml 06/30/19 [Last Taken Unknown] furosemide 40 mg tablet 40 mg PO .TTHSS #48 tab 09/09/19 [Last Taken Unknown] furosemide 80 mg tablet 80 mg PO .MWF #36 tab 09/09/19 [Last Taken Unknown] propylene glycol 0.6 % eye drops 1 drp OP DAILY PRN #20 ml 09/09/19 [Last Taken Unknown] lancing device with lancets kit See Rx Instructions .ROUTE .COMPLEX #200 unknown measurement unit code: kit 11/25/19 [Last Taken Unknown] multivitamin 1 tab PO DAILY #90 tab 12/04/19 [Last Taken Unknown] pen needle,diabetic dual safty 30 gauge x 3/16" See Rx Instructions .ROUTE .COMPLEX #100 unknown measurement unit code: not specified 12/16/19 [Last Taken Unknown] albuterol sulfate 90 mcg/actuation aerosol inhaler See Rx Instructions .ROUTE .COMPLEX #8.5 unknown measurement unit code: gram 01/01/20 [Last Taken Unknown] atorvastatin 40 mg tablet See Rx Instructions .ROUTE .COMPLEX #28 unknown me asurement unit code: tablet 02/05/20 [Last Taken Unknown] spironolactone 25 mg tablet See Rx Instructions .ROUTE .COMPLEX #28 unknown measurement unit code: tablet 02/05/20 [Last Taken Unknown] insulin glargine 100 unit/mL (3 mL) subcutaneous pen See Rx Instructions .ROUTE .COMPLEX #30 unknown measurement unit code: ml 02/10/20 [Last Taken Unknown] alcohol swabs 1 pad TP TID #100 ea 03/10/20 [Last Taken Unknown] amoxicillin 500 mg-potassium clavulanate 125 mg tablet 1 tab PO BID #20 tab 03/15/20 [Last Taken Unknown] clotrimazole-betamethasone 1 %-0.05 % topical cream See Rx Instructions .ROUTE .COMPLEX #45 unknown measurement unit code: gram 04/06/20 [Last Taken Unknown] acetaminophen 500 mg tablet 500 mg PO DAILY #30 tab 04/07/20 [Last Taken Unknown] aspirin 325 mg tablet,delayed release 325 mg PO DAILY #90 tab 04/14/20 [Last Taken Unknown] calcium carbonate 600 mg (1,500 mg)-vitamin D3 400 unit tablet 1 tab PO BID #180 tab 04/14/20 [Last Taken Unknown] losartan 50 mg tablet 100 mg PO DAILY #180 tab 04/14/20 [Last Taken Unknown] cyanocobalamin (vitamin B-12) 1,000 mcg tablet See Rx Instructions .ROUTE .COMPLEX #12 unknown measurement unit code: tablet 04/21/20 [Last Taken Unknown] ferrous sulfate 325 mg (65 mg iron) tablet See Rx Instructions .ROUTE .COMPLEX #28 unknown measurement unit code: tablet 04/21/20 [Last Taken Unknown] fexofenadine 180 mg tablet See Rx Instructions .ROUTE .COMPLEX #28 unknown measurement unit code: tablet 04/21/20 [Last Taken Unknown] omeprazole 40 mg capsule,delayed release See Rx Instructions .ROUTE .COMPLEX #28 unknown measurement unit code: capsule 04/21/20 [Last Taken Unknown] vit A 7,160 unit-C 113 mg-E 100 ynkr-sbin-bkniyd tablet,delayed rel. 2 tab PO BID #120 tab 04/21/20 [Last Taken Unknown] tiotropium bromide 2.5 mcg/actuation mist for inhalation See Rx Instructions .ROUTE .COMPLEX #4 unknown measurement unit code: gram 05/02/20 [Last Taken Unknown] diltiazem HCl 240 mg capsule,extended release 24 hr See Rx Instructions .ROUTE . COMPLEX #28 capsule 05/16/20 [Last Taken Unknown] donepezil 5 mg tablet See Rx Instructions .ROUTE .COMPLEX #28 tablet 05/16/20 [Last Taken Unknown] duloxetine 30 mg capsule,delayed release See Rx Instructions .ROUTE .COMPLEX #28 unknown measurement unit code: capsule 05/16/20 [Last Taken Unknown] primidone 50 mg tablet See Rx Instructions .ROUTE .COMPLEX #28 tablet 05/16/20 [Last Taken Unknown] ipratropium 0.5 mg-albuterol 3 mg (2.5 mg base)/3 mL nebulization soln 3 ml IH TID #90 ml 05/18/20 [Last Taken Unknown] pregabalin 100 mg capsule 100 mg PO TID #90 cap 05/18/20 [Last Taken Unknown] sennosides 8.6 mg tablet See Rx Instructions .ROUTE .COMPLEX #56 tablet 05/18/20 [Last Taken Unknown] budesonide-formoterol HFA 160 mcg-4.5 mcg/actuation aerosol inhaler 2 inh INHALATION BID #10.2 g 05/23/20 [Last Taken Unknown] Exam - Exam Vital Signs: Vital Signs - Last Taken Temp 36.6 C 05/23/20 15:00 Pulse 92 05/23/20 16:26 Resp 27 H 05/23/20 16:26 BP 149/59 05/23/20 15:00 Pulse Ox 100 05/23/20 16:26 Constitutional: Present: Alert, Oriented x3, Cooperative, Well developed, No distress, Morbidly obese ENT Exam: Present: normal ENT inspection, hearing grossly normal, pharynx normal, TMs normal Eye Exam: bilateral eye: PERRL, EOMI Neck: Present: non-tender, full range of motion, supple, normal inspection, trachea midline Back Exam: Present: normal inspection, no CVA tenderness, no vertebral tenderness Breasts: Present: Exam deferred, Nontender Respiratory: Present: wheezing - Scattered wheezing bilaterally Cardiovascular/Chest: Present: normal peripheral pulses, regular rate, rhythm, no chest tenderness, no gallop, no JVD, no murmur, no rub, edema Peripheral Pulses: carotid (R): 3+, carotid (L): 3+, femoral (R): 3+, femoral (L): 3+, dorsalis-pedis (R): 2+, dorsalis-pedis (L): 2+ Abdomen: Present: Normal bowel sounds, soft, nontender, nondistended, no rebound tenderness, no hepatospenomegaly, no masses, obese /Rectal: Present: Exam deferred Extremity: Present: normal range of motion, non-tender, normal inspection, no calf tenderness, pedal edema - Bilateral 1+ pedal edema Skin Exam: Present: normal color, warm/dry, no cyanosis Lymphatic: Present: no adenopathy Neurologic: Present: account collector II-XII nml as tested, normal cerebellar test, no motor/sensory deficits, alert, normal mood/affect, oriented x 3 Appearance: Present: appropriate appearance, appropriate insight, neat, no memory impairment Eye contact: Present: cooperative, good eye contact, normal speech Thoughts: Present: normal thought pattern, no apparent hallucination Diagnostic Studies: Abnormal Lab Results 05/23/20 05/23/20 05/23/20 Range/Units 09:24 09:40 09:40 RBC 4.08 L (4.7-6.0) M/mm3 Hgb 11.4 L (13.5-18.0) gm/dL Hct 36.7 L (42.0-52.0) % MCHC 31.1 L (32-36) g/dl RDW 15.0 H (11.5-14.0) % Immature Gran % (Auto) 0.60 H (0.001-0.429) % Immature Gran # (Auto) 0.05 H (0.000-0.0310) K/mm3 Lymphocytes % 19.7 L (20-51) % Monocytes % 9.2 H (0.0-9) % Eosinophils % 8.0 H (0.0-3.0) % PT (9.1-10.7) Seconds INR (Anticoag Therapy) (0.92-1.08) INR D-Dimer (0.19-0.49) ug/mL pO2 331.7 H (83.0-108.0) mmHg Base Excess -4.5 L (-2.0-3.0) mmol/L ABG pH 7.31 L (7.35-7.45) ABG O2 Sat (Measured) 99.7 H (94.0-98.0) % Creatinine 1.48 H (0.4-1.4) mg/dL Est GFR (Non-Af Amer) 49 L (60-130) mL/min Random Glucose 187 H (70-110) mg/dL Lactic Acid, Venous (0.4-2.0) mmol/L Alkaline Phosphatase 179 H (50-170) U/L Albumin 3.3 L (3.4-5.0) gm/dl Procalcitonin (0.05-0.50) ng/mL 05/23/20 05/23/20 05/23/20 Range/Units 09:40 09:40 09:40 RBC (4.7-6.0) M/mm3 Hgb (13.5-18.0) gm/dL Hct (42.0-52.0) % MCHC (32-36) g/dl RDW (11.5-14.0) % Immature Gran % (Auto) (0.001-0.429) % Immature Gran # (Auto) (0.000-0.0310) K/mm3 Lymphocytes % (20-51) % Monocytes % (0.0-9) % Eosinophils % (0.0-3.0) % PT (9.1-10.7) Seconds INR (Anticoag Therapy) (0.92-1.08) INR D-Dimer 0.65 H (0.19-0.49) ug/mL pO2 (83.0-108.0) mmHg Base Excess (-2.0-3.0) mmol/L ABG pH (7.35-7.45) ABG O2 Sat (Measured) (94.0-98.0) % Creatinine (0.4-1.4) mg/dL Est GFR (Non-Af Amer) (60-130) mL/min Random Glucose (70-110) mg/dL Lactic Acid, Venous 3.2 H* (0.4-2.0) mmol/L Alkaline Phosphatase (50-170) U/L Albumin (3.4-5.0) gm/dl Procalcitonin Less than 0.05 L (0.05-0.50) ng/mL 05/23/20 05/23/20 Range/Units 09:40 12:07 RBC (4.7-6.0) M/mm3 Hgb (13.5-18.0) gm/dL Hct (42.0-52.0) % MCHC (32-36) g/dl RDW (11.5-14.0) % Immature Gran % (Auto) (0.001-0.429) % Immature Gran # (Auto) (0.000-0.0310) K/mm3 Lymphocytes % (20-51) % Monocytes % (0.0-9) % Eosinophils % (0.0-3.0) % PT 10.9 H (9.1-10.7) Seconds INR (Anticoag Therapy) 1.11 H (0.92-1.08) INR D-Dimer (0.19-0.49) ug/mL pO2 (83.0-108.0) mmHg Base Excess (-2.0-3.0) mmol/L ABG pH (7.35-7.45) ABG O2 Sat (Measured) (94.0-98.0) % Creatinine (0.4-1.4) mg/dL Est GFR (Non-Af Amer) (60-130) mL/min Random Glucose (70-110) mg/dL Lactic Acid, Venous 3.8 H* (0.4-2.0) mmol/L Alkaline Phosphatase (50-170) U/L Albumin (3.4-5.0) gm/dl Procalcitonin (0.05-0.50) ng/mL Laboratory Results WBC 8.4 K/mm3 (4.0-10.5) 05/23/20 09:40 RBC 4.08 M/mm3 (4.7-6.0) L 05/23/20 09:40 Hgb 11.4 gm/dL (13.5-18.0) L 05/23/20 09:40 Hct 36.7 % (42.0-52.0) L 05/23/20 09:40 MCV 90.0 fl (78-100) 05/23/20 09:40 MCH 27.9 pg (27-31) 05/23/20 09:40 MCHC 31.1 g/dl (32-36) L 05/23/20 09:40 RDW 15.0 % (11.5-14.0) H 05/23/20 09:40 Plt Count 198 K/mm3 (150-450) 05/23/20 09:40 MPV 9.6 fl (8-11.3) 05/23/20 09:40 Immature Gran % (Auto) 0.60 % (0.001-0.429) H 05/23/20 09:40 Immature Gran # (Auto) 0.05 K/mm3 (0.000-0.0310) H 05/23/20 09:40 Neutrophils % 61.9 % (42-75.0) 05/23/20 09:40 Lymphocytes % 19.7 % (20-51) L 05/23/20 09:40 Monocytes % 9.2 % (0.0-9) H 05/23/20 09:40 Eosinophils % 8.0 % (0.0-3.0) H 05/23/20 09:40 Basophils % 0.6 % (0.0-1.0) 05/23/20 09:40 Nucleated RBC % 0.0 k/mm3 (0-1) 05/23/20 09:40 Neutrophils # 5.2 K/mm3 (1.3-6.0) 05/23/20 09:40 Lymphocytes # 1.65 k/mm3 (1.5-3.5) 05/23/20 09:40 Monocytes # 0.8 k/mm3 (0.0-1.0) 05/23/20 09:40 Eosinophils # 0.7 k/mm3 (0.0-0.7) 05/23/20 09:40 Absolute Basophils 0.1 k/mm3 (0.0-0.1) 05/23/20 09:40 PT 10.9 Seconds (9.1-10.7) H 05/23/20 09:40 INR (Anticoag Therapy) 1.11 INR (0.92-1.08) H 05/23/20 09:40 PTT (Aubrey) 26.5 Seconds (24-32) 05/23/20 09:40 D-Dimer 0.65 ug/mL (0.19-0.49) H 05/23/20 09:40 pCO2 43.9 mmHg (35.0-48.0) 05/23/20 09:24 pO2 331.7 mmHg (83.0-108.0) H 05/23/20 09:24 HCO3 21.6 mmol/L (21.0-28.0) 05/23/20 09:24 Total CO2 23.0 mmol/L (19.0-24.0) 05/23/20 09:24 Base Excess -4.5 mmol/L (-2.0-3.0) L 05/23/20 09:24 ABG pH 7.31 (7.35-7.45) L 05/23/20 09:24 ABG O2 Sat (Measured) 99.7 % (94.0-98.0) H 05/23/20 09:24 Sodium 137 mmol/L (132-142) 05/23/20 09:40 Plasma Sodium 138 mmol/L (130-142) 05/23/20 09:40 Potassium 4.3 mmol/L (3.4-4.6) 05/23/20 09:40 Chloride 102 mmol/L (97-106) 05/23/20 09:40 Carbon Dioxide 27.9 mmol/L (24-32.6) 05/23/20 09:40 Anion Gap 11.4 mmol/L (6.8-13.8) 05/23/20 09:40 BUN 23 mg/dL (6-23) 05/23/20 09:40 Creatinine 1.48 mg/dL (0.4-1.4) H 05/23/20 09:40 Est GFR (Non-Af Amer) 49 mL/min (60-130) L 05/23/20 09:40 BUN/Creatinine Ratio 15.5 (9.0-21.6) 05/23/20 09:40 Random Glucose 187 mg/dL (70-110) H 05/23/20 09:40 Lactic Acid, Venous 3.8 mmol/L (0.4-2.0) H* 05/23/20 12:07 Calcium 9.1 mg/dL (7.9-10.9) 05/23/20 09:40 Calcium Adj for Albumin 9.3 mg/dL (8.4-10.2) 05/23/20 09:40 Total Bilirubin 0.4 mg/dL (0.0-1.1) 05/23/20 09:40 AST 28 U/L (0-48) 05/23/20 09:40 ALT 40 U/L (19-67) 05/23/20 09:40 Alkaline Phosphatase 179 U/L (50-170) H 05/23/20 09:40 Troponin I Less than 0.017 ng/mL (0.00-0.10) 05/23/20 09:40 B-Natriuretic Peptide 118 pg/mL (5-650) 05/23/20 09:40 Total Protein 7.2 gm/dL (6.2-8.2) 05/23/20 09:40 Albumin 3.3 gm/dl (3.4-5.0) L 05/23/20 09:40 Procalcitonin Less than 0.05 ng/mL (0.05-0.50) L 05/23/20 09:40 Assessment/Plan - Narrative Narrative: Patient was evaluated medical chart was reviewed and decision to admit for observation on the Medr unit for diagnosis of COPD exacerbation and respiratory failure was made. Patient is currently on a BiPAP machine which he is tolerating without any issues attempt to wean him off earlier failed so we will keep him on the machine overnight and attempt to wean off in the morning. In the meantime we will treat him with IV steroids, antibiotics, and breathing treatments with DuoNeb, patient will also be administered his routine medications which also includes a diuretic to avoid fluid overload or worsening edema. We will also keep a close eye on his blood sugars given his history of type 2 diabetes. - Assessment/Plan (1) COPD exacerbation Problem: Acute (2) Respiratory difficulty Problem: Acute (3) Wheezing Problem: Acute (4) GERD (gastroesophageal reflux disease) Problem: Chronic (5) YARITZA and COPD overlap syndrome Problem: Acute (6) Sleep apnea Problem: Chronic Qualifiers: (7) HTN (hypertension) Problem: Chronic Qualifiers: Hypertension type: essential hypertension (8) YARITZA on CPAP Problem: Chronic
[2020-05-23] MEDS ORDERED: CARBOXYMETHYLCELLULOSE SODIUM OP PRN (18:46)
[2020-05-23] MEDS ORDERED: TIOTROPIUM BROMIDE IH SCH (19:00)
[2020-05-23] MEDS ORDERED: [UNRECOGNIZED DRUG - OTHER] IH SCH (19:00)
[2020-05-23] MEDS ORDERED: OMEPRAZOLE 40 MG PO SCH (19:00)
[2020-05-23] MEDS ORDERED: DULoxetine HCL 30 MG CAPSULE.SA PO SCH (19:00)
[2020-05-23] MEDS ORDERED: ASPARTAME PO SCH (19:00)
[2020-05-23] MEDS ORDERED: MULTIVITAMIN PO SCH (19:00)
[2020-05-23] MEDS ORDERED: DILTIAZEM HCL 240 MG PO SCH (19:00)
[2020-05-23] MEDS ORDERED: PSYLLIUM HUSK PO SCH (19:00)
[2020-05-23] MEDS ORDERED: FEXOFENADINE HCL 180 MG PO SCH (19:00)
[2020-05-23] MEDS ORDERED: FERROUS SULFATE 325 MG PO SCH (19:00)
[2020-05-23] MEDS: DILTIAZEM HCL 240 MG CAP.SR.24H PO SCH (19:06)
[2020-05-23] MEDS: LORATADINE 10 MG TABLET PO SCH (19:06)
[2020-05-23] MEDS: DULoxetine HCL 30 MG CAPSULE.SA PO SCH (19:08)
[2020-05-23] MEDS: FERROUS SULFATE 325 MG TABLET PO SCH (19:08)
[2020-05-23] MEDS: SPIRONOLACTONE 25 MG TABLET PO SCH (19:10)
[2020-05-23] MEDS: ASPIRIN 325 MG TABLET.DR PO SCH (19:11)
[2020-05-23] MEDS ORDERED: SIMETHICONE 80 MG TAB.CHEW PO PRN (19:27)
[2020-05-23] MEDS ORDERED: FLUTICASONE PROPIONATE 120 SPRAY INHALER NS PRN (19:38)
[2020-05-23] MEDS: FAMOTIDINE 20 MG TABLET PO SCH ×2 (19:56→20:25)
[2020-05-23] MEDS: CLOTRIMAZOLE/BETAMET DIPROP 15 APPL TUBE TP SCH ×2 (19:57→20:25)
[2020-05-23] MEDS: METHYLPREDNISOLONE SOD SUCC/PF 125 MG/2 ML VIAL IV SCH ×2 (19:57→21:43)
[2020-05-23] MEDS: PREGABALIN 50 MG CAPSULE PO SCH (19:59)
[2020-05-23] MEDS: AMOX TR/POTASSIUM CLAVULANATE 500 MG TABLET PO SCH (20:00)
[2020-05-23] MEDS: CALCIUM CARBONATE/VITAMIN D3 1 TAB TABLET PO SCH (20:01)
[2020-05-23] MEDS: BETA-CAROTENE(A) W-C , E/MIN 1 TAB TABLET PO SCH (20:01)
[2020-05-23] MEDS: INSULIN GLARGINE,HUM.REC.ANLOG 100 UNITS/ML VIAL SC SCH (20:19)
[2020-05-23] MEDS: TAMSULOSIN HCL 0.4 MG CAP.SR.24H PO SCH (20:19)
[2020-05-23] MEDS ORDERED: PRIMIDONE 50 MG TABLET PO SCH ×2 (21:00)
[2020-05-23] MEDS ORDERED: CALCIUM CARBONATE/VITAMIN D3 1 TAB TABLET PO SCH (21:00)
[2020-05-23] MEDS ORDERED: DONEPEZIL HCL 5 MG TABLET PO SCH ×2 (21:00)
[2020-05-23] MEDS ORDERED: SODIUM CHLORIDE 45 SPRAY BTL NS SCH (21:00)
[2020-05-23] MEDS ORDERED: SENNOSIDES 8.6 MG TABLET PO SCH (21:00)
[2020-05-23] MEDS ORDERED: INSULIN GLARGINE,HUM.REC.ANLOG 100 UNITS/ML VIAL SC SCH ×2 (21:00)
[2020-05-24] MEDS: METHYLPREDNISOLONE SOD SUCC/PF 125 MG/2 ML VIAL IV SCH ×2 (01:51→09:56)
[2020-05-24] MEDS: ALBUTEROL SULFATE/IPRATROPIUM 3 ML NEBU IH SCH ×3 (02:09→10:43)
[2020-05-24] MEDS ORDERED: PANTOPRAZOLE SODIUM 40 MG TABLET.EC PO SCH (07:00)
[2020-05-24] MEDS ORDERED: ACETAMINOPHEN 500 MG TABLET PO SCH (09:00)
[2020-05-24] MEDS ORDERED: Preparation H Suppository RC SCH (09:00)
[2020-05-24] MEDS ORDERED: LORATADINE 10 MG TABLET PO SCH (09:00)
[2020-05-24] MEDS ORDERED: MULTIVITAMINS 1 CAP CAPSULE PO SCH ×2 (09:00)
[2020-05-24] MEDS ORDERED: PSYLLIUM SEED 1 PACKET PACKET PO SCH (09:00)
[2020-05-24] MEDS ORDERED: LOSARTAN POTASSIUM 50 MG TABLET PO SCH (09:00)
[2020-05-24] MEDS ORDERED: FUROSEMIDE 40 MG TABLET PO SCH ×2 (09:00→18:46)
[2020-05-24] MEDS ORDERED: PREGABALIN 50 MG CAPSULE PO SCH (09:00)
[2020-05-24] MEDS ORDERED: FERROUS SULFATE 325 MG TABLET PO SCH (09:00)
[2020-05-24] MEDS ORDERED: FLUTICASONE PROPION/SALMETEROL 14 PUFF DISK.W.DEV IH SCH (09:00)
[2020-05-24] MEDS ORDERED: TIOTROPIUM BROMIDE 5 CAP INHALER IH SCH (09:00)
[2020-05-24] MEDS: SPIRONOLACTONE 25 MG TABLET PO SCH (09:58)
[2020-05-24] MEDS: AMOX TR/POTASSIUM CLAVULANATE 500 MG TABLET PO SCH (09:59)
[2020-05-24] MEDS: CALCIUM CARBONATE/VITAMIN D3 1 TAB TABLET PO SCH (09:59)
[2020-05-24] MEDS: BETA-CAROTENE(A) W-C , E/MIN 1 TAB TABLET PO SCH (09:59)
[2020-05-24] MEDS: DILTIAZEM HCL 240 MG CAP.SR.24H PO SCH (09:59)
[2020-05-24] MEDS: TAMSULOSIN HCL 0.4 MG CAP.SR.24H PO SCH (10:01)
[2020-05-24] MEDS: FERROUS SULFATE 325 MG TABLET PO SCH (10:01)
[2020-05-24] MEDS: DULoxetine HCL 30 MG CAPSULE.SA PO SCH (10:01)
[2020-05-24] MEDS: INSULIN GLARGINE,HUM.REC.ANLOG 100 UNITS/ML VIAL SC SCH (10:02)
[2020-05-24] MEDS: CLOTRIMAZOLE/BETAMET DIPROP 15 APPL TUBE TP SCH (10:03)
[2020-05-24] MEDS: LORATADINE 10 MG TABLET PO SCH (10:04)
[2020-05-24] MEDS: ASPIRIN 325 MG TABLET.DR PO SCH (10:04)
[2020-05-24] MEDS: PREGABALIN 50 MG CAPSULE PO SCH (10:08)
--- NOTE | 2020-05-24 10:09 | DS ---
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 Patient has shown significant clinical improvement after being treated with multiple doses of IV steroids, oral antibiotics, and breathing treatments [id number]. His wheezing has resolved and he was able to be weaned off the BiPAP machine. The patient is now at his baseline on 2 L of O2 by nasal cannula which he is tolerating without any issues. With that, we will discharge patient back to the [facility] where he will continue a course of oral antibiotics and oral steroids with a taper to treat his COPD. We will also provide additional breathing treatments and restart his inhalers. Patient was instructed to follow-up with his PCP in 5 days. Procedures Performed: none Results and Findings: Lab Pending Results 05/23/20 09:24: pCO2 43.9, pO2 331.7 H, HCO3 21.6, Total CO2 23.0, Base Excess - 4.5 L, ABG pH 7.31 L, ABG O2 Sat (Measured) 99.7 H 05/23/20 09:40: WBC 8.4, RBC 4.08 L, Hgb 11.4 L, Hct 36.7 L, MCV 90.0, MCH 27.9, MCHC 31.1 L, RDW 15.0 H, Plt Count 198, MPV 9.6, Immature Gran % (Auto) 0.60 H, Immature Gran # (Auto) 0.05 H, Neutrophils % 61.9, Lymphocytes % 19.7 L, Monocytes % 9.2 H, Eosinophils % 8.0 H, Basophils % 0.6, Nucleated RBC % 0.0, Neutrophils # 5.2, Lymphocytes # 1.65, Monocytes # 0.8, Eosinophils # 0.7, Absolute Basophils 0.1 05/23/20 09:40: Sodium 137, Plasma Sodium 138, Potassium 4.3, Chloride 102, Carbon Dioxide 27.9, Anion Gap 11.4, BUN 23, Creatinine 1.48 H, Est GFR (Non-Af Amer) 49 L, BUN/Creatinine Ratio 15.5, Random Glucose 187 H, Calcium 9.1, Calcium Adj for Albumin 9.3, Total Bilirubin 0.4, AST 28, ALT 40, Alkaline Phosphatase 179 H, Troponin I Less than 0.017, B-Natriuretic Peptide 118, Total Protein 7.2, Albumin 3.3 L 05/23/20 09:40: D-Dimer 0.65 H 05/23/20 09:40: Lactic Acid, Venous 3.2 H* 05/23/20 09:40: Procalcitonin Less than 0.05 L 05/23/20 09:40: PT 10.9 H, INR (Anticoag Therapy) 1.11 H, PTT ([place]) 26.5 05/23/20 12:07: Lactic Acid, Venous 3.8 H* Discharge Location: [facility] Disposition: Home self-care Condition: Fair Face to Face Encounter completed per [facility] Guidelines: No Discharge Activity: Activity as tolerated Discharge Diet: Consistent carbs Referrals: Familia Figueroa MD [Primary Care Provider] - Prescriptions (Any new or edited meds): Levofloxacin [Levaquin] 500 mg PO DAILY 4 Days #4 tab Transmission Status: Pending to [facility] predniSONE [Prednisone] See Taper PO DAILY #20 tab Transmission Status: Pending to [facility] Prednisone 50 mg PO DAILY 4 Days #4 tab Transmission Status: Pending to [facility] guaiFENesin [Robitussin] 100 mg PO Q4H PRN #1 syrup PRN Reason: Cough Transmission Status: Pending to [facility] Complete Home Medications List: Complete Home Medication List: Acetaminophen 500 mg PO 1200 05/23/20 Albuterol Sulfate [Proair HFA] 1 - 2 puff IH Q4H PRN 05/23/20 Alcohol Antiseptic Pads [Alcohol Prep Pad] 1 ea TP TID 05/23/20 Aspirin [Aspirin EC] 325 mg PO DAILY 05/23/20 Atorvastatin Calcium 40 mg PO DAILY 05/23/20 Budesonide/Formoterol Fumarate [Symbicort 160-4.5 Mcg Inhaler] 2 puff IH BID 05/23/20 Calcium Carbonate/Vitamin D3 [Calcium 600-Vit D3 400 Tablet] 1 ea PO BID 05/23/20 Carboxymethylcellulose Sodium [Refresh Tears] 1 drp OP DAILY PRN 05/23/20 Clotrimazole/Betamethasone Dip [Clotrimazole-Betamethasone Crm] 1 appl TP BID 05/23/20 Cyanocobalamin [Vitamin B-12] 1,000 mcg PO MOWEFR 05/23/20 Diltiazem HCl [Diltiazem 24Hr ER (Cd)] 240 mg PO DAILY 05/23/20 Donepezil HCl [Aricept] 5 mg PO HS 05/23/20 Duloxetine HCl [Cymbalta] 90 mg PO DAILY 05/23/20 Ferrous Sulfate [Iron] 325 mg PO DAILY 05/23/20 Fexofenadine HCl 180 mg PO DAILY 05/23/20 Furosemide [Lasix] 40 mg PO SUTUTHSA 05/23/20 Furosemide [Lasix] 80 mg PO MOWEFR 05/23/20 Insulin Glargine,Hum.rec.anlog [Lantus Solostar] 40 unit SQ BID 05/23/20 Ipratropium/Albuterol Sulfate [Iprat-Albut 0.5-3(2.5) mg/3 ml] 3 ml IH TID 05/23/20 Losartan Potassium [Cozaar] 100 mg PO DAILY 05/23/20 Multivitamin [Tab-A-Yeimi] 1 ea PO DAILY 05/23/20 Omeprazole 40 mg PO DAILY 05/23/20 Phenylephrine HCl/[place] Butter [Preparation H Suppository] 1 supp RC DAILY 05/23/20 Pregabalin [Lyrica] 100 mg PO TID 05/23/20 Primidone [Mysoline] 50 mg PO HS 05/23/20 Psyllium Husk/Aspartame [Sm Fiber Powder] 3.4 gm PO DAILY 05/23/20 Sennosides [Senna] 17.2 tab PO HS 05/23/20 Simethicone [Gas-X] 125 mg PO ACHS PRN 05/23/20 Sodium Chloride [Saline Nose [place]] 2 spray NS BID 05/23/20 Spironolactone [Aldactone] 25 mg PO DAILY 05/23/20 Tamsulosin HCl [Flomax] 0.4 mg PO DAILY 05/23/20 Tiotropium [place] [Spiriva Respimat 2.5 mcg/inhalation] 2 puff IH DAILY 05/23/20 Vitc/E/Zinc/Copper/Lutein/Zeax [Icaps Areds2 Tablet] 1 ea PO BID 05/23/20 Diltiazem HCl [Cardizem Cd] 240 mg PO DAILY cap.sr.24h 05/24/20 Fluticasone Propionate [Flonase] 2 spray NS DAILY PRN 05/24/20 Levofloxacin [Levaquin] 500 mg PO DAILY 4 Days #4 tab 05/24/20 Prednisone 50 mg PO DAILY 4 Days #4 tab 05/24/20 guaiFENesin [Robitussin] 100 mg PO Q4H PRN #1 syrup 05/24/20 predniSONE [Prednisone] See Taper PO DAILY #20 tab 05/24/20
[2020-05-24 11:45] VITALS: BP 165/70
[2020-05-25] MEDS ORDERED: Preparation H Suppository RC SCH (09:00)
== END 2020-05-24 11:45 | disposition home or self-care (01) ==
LOC: SCU 09:15 → ER 09:15 → SCU 15:00
PROVIDERS: ADMIT Family Medicine; ATTEND Family Medicine